=== PATIENT | female | born 1975 | race Caucasian/White ===

== ENCOUNTER 2022-01-07 08:15 | Inpatient (IN) | payer OTHER ==
[~2022-01-07] VITALS: Ht 177.8 cm; Wt 80.1 kg
[2022-01-07 09:34] LABS: Basophils # (auto) 0.1 10 ^3/uL (0-0.2); Basophils % (auto) 0.3 % (0.0-2.0)
[2022-01-07 09:35] LABS: Eosinophils # (auto) 0.1 10 ^3/uL (0-0.8); Eosinophils % (auto) 0.4 % (0.0-7.0); Hematocrit 38.9 % (36.0-46.0); Hemoglobin 12.2 g/dL (12.2-16.2); Lymphocytes # (auto) 1.6 10 ^3/uL (0.4-5.4); Lymphocytes % (auto) 7.4 % (10.0-50.0); Mean Corpuscular Hemoglobin 29.1 pg (28.0-32.0); Mean Corpuscular Hgb Conc. 31.3 g/dL (32.0-36.0); Mean Corpuscular Volume 92.9 fL (80.0-100.0); Monocytes % (auto) 4.6 % (0.0-12.0); Neutrophils # (auto) 18.7 10 ^3/uL (1.6-8.6); Neutrophils % (auto) 87.3 % (37.0-80.0); Nucleated Red Blood Cells % 0.1 %; Red Blood Cells 4.18 10^6/uL (4.0-5.20); Red Cell Distribution Width 16.9 % (11.8-14.3); White Blood Cell 21.5 10^3/uL (4.4-10.8)
[2022-01-07] MEDS ORDERED: ONDANSETRON HCL 4 MG/2 ML VIAL IV ONE (10:30)
[2022-01-07] MEDS ORDERED: SODIUM CHLORIDE 0.9% 1,000 ML IV ONE ×2 (10:30→12:00)
[2022-01-07] MEDS ORDERED: MORPHINE SULFATE 4 MG/ML SYR/VIAL IV ONE (12:00)
[2022-01-07 12:11] LABS: Albumin 1.4 g/dL (3.4-5.0); BUN/Creatinine Ratio 24.1; Calcium 6.9 mg/dL (8.5-10.1)
[2022-01-07 12:25] LABS: Magnesium 2.2 mg/dL (1.6-2.6)
[2022-01-07 12:31] LABS: Bilirubin, Total 0.6 mg/dL (0.2-1.0); Total Protein 5.1 g/dL (6.4-8.2)
[2022-01-07] MEDS: PROMETHAZINE HCL 25 MG/ML 1ML IV PRN (12:31)
[2022-01-07] MEDS ORDERED: POTASSIUM EFFERVESENT TAB 25 MEQ PO ONE (13:45)
[2022-01-07] MEDS ORDERED: ALBUMIN 25% 100 ML IV ONE (13:45)
[2022-01-07] MEDS ORDERED: IOHEXOL 300 MG/ML 100ML BOTTLE IJ ONE (13:46)
[2022-01-07] MEDS ORDERED: PROCHLORPERAZINE EDISYLATE 5 MG/ML 2ML VIAL IV ONE (14:30)
[2022-01-07] MEDS ORDERED: HYDROmorphone HCL 2 MG/ML VL/or syr IV ONE ×2 (15:15→19:45)
[2022-01-07] MEDS ORDERED: D5W/SOD CHL 0.45%/KCL 40MEQ 1,000 ML IV ONE (16:00)
[2022-01-07] MEDS ORDERED: FLEET MINERAL OIL ENEMA 133 ML PR ONE (16:15)
[2022-01-07] MEDS ORDERED: DOCUSATE SOD 100 MG CAP PO PRN (17:00)
[2022-01-07] MEDS ORDERED: MORPHINE SULFATE INJ 2 MG/ml SYRG IV PRN (17:00)
[2022-01-07] MEDS: metroNIDAZOLE 500MG/100ML 100 ML IV SCH (17:15)
[2022-01-07] MEDS ORDERED: TPN PER PHARMACY 0 ML IV SCH (17:30)
[2022-01-07] MEDS: SODIUM CHLORIDE 0.9% 1,000 ML IV SCH (17:45)
[2022-01-07] MEDS: POTASSIUM CHL 20MEQ/100ML 100 ML IV SCH ×2 (18:45→21:43)
[2022-01-07] MEDS: AMINO ACID INFUSION IN D10W 1,000 ML IV NR (20:00)
[2022-01-07 22:00] VITALS: BP 104/66
[2022-01-07] MEDS ORDERED: POTASSIUM CHL 20MEQ/100ML 100 ML IV ONE (22:00)
[2022-01-07] MEDS ORDERED: LEVO150T10 PO (22:43)
[2022-01-07] MEDS ORDERED: [UNRECOGNIZED DRUG - CODE] (22:43)
[2022-01-07] MEDS: HYDROmorphone HCL 2 MG/ML VL/or syr IV PRN (23:25)
[2022-01-08] MEDS ORDERED: DEXTROSE (50%) 50ML SYRG IV SCH
[2022-01-08] MEDS: ACCU-CHEK COMFORT CURVE STRIP VI SCH ×5 (00:58→23:30)
[2022-01-08] MEDS: InsuLIN REG 1unit/0.01ml Soln (100units/ml) SC SCH ×5 (00:58→23:30)
[2022-01-08] MEDS: metroNIDAZOLE 500MG/100ML 100 ML IV SCH ×3 (01:26→17:39)
[2022-01-08] MEDS: HYDROmorphone HCL 2 MG/ML VL/or syr IV PRN ×6 (03:05→23:30)
[2022-01-08 05:00] VITALS: BP 112/76
[2022-01-08 06:13] LABS: Urine Bacteria NONE SEEN /hpf (None Seen); Urine Blood 3+ /uL (Negative); Urine Hyaline Cast FEW /lpf (0 - 2); Urine Mucus FEW (None Seen); Urine Specific Gravity 1.043 (1.001-1.035); Urine WBC 8 /hpf (0 - 5)
[2022-01-08 06:30] LABS: Albumin 1.3 g/dL (3.4-5.0); Calcium 6.2 mg/dL (8.5-10.1); Magnesium 2.3 mg/dL (1.6-2.6)
[2022-01-08 06:32] LABS: Alcohol, Urine < 3.0 mg/dL (0-10); Amphetamine Screen, Urine NEGATIVE (NEGATIVE); Barbiturate Scree,Urine NEGATIVE (NEGATIVE); Benzodiazephine Screen, Urine NEGATIVE (NEGATIVE); Cannabinoid Screen, Urine NEGATIVE (NEGATIVE); Cocaine Screen, Urine NEGATIVE (NEGATIVE); Opiate Scree,Urine NEGATIVE (NEGATIVE); Phencyclidine Screen, Urine NEGATIVE (NEGATIVE)
[2022-01-08 06:33] LABS: BUN/Creatinine Ratio 30.2; Bilirubin, Total 0.6 mg/dL (0.2-1.0); Total Protein 4.3 g/dL (6.4-8.2)
[2022-01-08 06:36] LABS: Eosinophils # (auto) 0 10 ^3/uL (0-0.8); Eosinophils % (auto) 0.2 % (0.0-7.0); Hemoglobin 11.5 g/dL (12.2-16.2); Mean Corpuscular Volume 93.6 fL (80.0-100.0)
[2022-01-08 06:41] LABS: Basophils # (auto) 0.1 10 ^3/uL (0-0.2); Basophils % (auto) 0.3 % (0.0-2.0); Hematocrit 36.1 % (36.0-46.0); Lymphocytes # (auto) 1.6 10 ^3/uL (0.4-5.4); Lymphocytes % (auto) 8.5 % (10.0-50.0); Mean Corpuscular Hemoglobin 29.7 pg (28.0-32.0); Mean Corpuscular Hgb Conc. 31.8 g/dL (32.0-36.0); Monocytes % (auto) 5.4 % (0.0-12.0); Neutrophils % (auto) 85.6 % (37.0-80.0); Nucleated Red Blood Cells % 0.1 %; Red Blood Cells 3.86 10^6/uL (4.0-5.20); Red Cell Distribution Width 16.7 % (11.8-14.3); White Blood Cell 18.7 10^3/uL (4.4-10.8)
[2022-01-08 08:00] VITALS: BP 114/76
[2022-01-08 08:36] VITALS: BP 114/76
[2022-01-08] MEDS: SODIUM CHLORIDE 0.9% 1,000 ML IV SCH (09:40)
[2022-01-08 09:51] LABS: INR 1.25 (0.9-1.15); Partial Thromboplastin Time 29.3 sec (24.6-33.4)
[2022-01-08] MEDS: ONDANSETRON HCL 4 MG/2 ML VIAL IV PRN ×2 (10:31→16:15)
[2022-01-08] MEDS: ENOXAPARIN SOD 40 MG/0.4 ML SYRINGE SC SCH (10:31)
[2022-01-08] MEDS: AMINO ACID INFUSION IN D10W 1,000 ML IV NR (11:31)
[2022-01-08] MEDS: POTASSIUM CHL 20MEQ/100ML 100 ML IV SCH ×3 (12:11→21:47)
[2022-01-08] MEDS ORDERED: BENZOCAINE (DENTAL) 20 % SPRAY 60ML MT ONE (12:15)
[2022-01-08 13:29] VITALS: BP 114/74
[2022-01-08] MEDS ORDERED: CALCIUM GLUC 4.65meq/50ml D5AE 50 ML IV ONE (14:00)
[2022-01-08] MEDS ORDERED: CALCIUM GLUC 1,000mg/50ml-NS 50 ML IV ONE (15:00)
[2022-01-08 16:27] VITALS: BP 130/86
[2022-01-08] MEDS ORDERED: LIDOCAINE 1% (LOCAL ANESTH.) PF 5ml SDV ID ONE (16:30)
[2022-01-08] MEDS ORDERED: PPN PER PHARMACY IV NR ×8 (20:00)
[2022-01-08 20:20] LABS: Magnesium 2.2 mg/dL (1.6-2.6); Phosphorus 4.3 mg/dL (2.5-4.90)
[2022-01-08 20:29] LABS: Potassium 2.9 mmol/L (3.5-5.1)
[2022-01-08] MEDS ORDERED: POTASSIUM CHL 20MEQ/100ML 100 ML IV SCH (21:45)
[2022-01-08] MEDS: SODIUM CHLOR 0.9% PF (SALINE LOCK) 10ML VIAL/SYR IV SCH (21:47)
[2022-01-08 21:52] VITALS: BP 122/86
[2022-01-09] MEDS: metroNIDAZOLE 500MG/100ML 100 ML IV SCH ×2 (01:08→09:12)
[2022-01-09] MEDS: SODIUM CHLORIDE 0.9% 1,000 ML IV SCH ×2 (02:20→19:00)
[2022-01-09] MEDS: HYDROmorphone HCL 2 MG/ML VL/or syr IV PRN ×7 (02:30→23:57)
[2022-01-09 05:07] VITALS: BP 135/84
[2022-01-09] MEDS: ACCU-CHEK COMFORT CURVE STRIP VI SCH ×4 (05:38→23:56)
[2022-01-09] MEDS: InsuLIN REG 1unit/0.01ml Soln (100units/ml) SC SCH ×3 (06:03→18:22)
[2022-01-09 06:23] LABS: Albumin 1.1 g/dL (3.4-5.0); BUN/Creatinine Ratio 31.4; Magnesium 1.9 mg/dL (1.6-2.6)
[2022-01-09 06:25] LABS: Basophils # (auto) 0.1 10 ^3/uL (0-0.2); Basophils % (auto) 0.3 % (0.0-2.0); Bilirubin, Total 0.4 mg/dL (0.2-1.0); Eosinophils # (auto) 0 10 ^3/uL (0-0.8); Eosinophils % (auto) 0.1 % (0.0-7.0); Hematocrit 36.3 % (36.0-46.0); Hemoglobin 11.5 g/dL (12.2-16.2); Mean Corpuscular Hgb Conc. 31.6 g/dL (32.0-36.0); Mean Corpuscular Volume 94.9 fL (80.0-100.0); Monocytes # (auto) 1.4 10 ^3/uL (0-1.3); Monocytes % (auto) 5.4 % (0.0-12.0); Neutrophils % (auto) 90.2 % (37.0-80.0); Phosphorus 3.2 mg/dL (2.5-4.90); Red Blood Cells 3.82 10^6/uL (4.0-5.20); Red Cell Distribution Width 16.5 % (11.8-14.3); Total Protein 4.1 g/dL (6.4-8.2); White Blood Cell 25.5 10^3/uL (4.4-10.8)
[2022-01-09 07:42] LABS: Potassium 2.9 mmol/L (3.5-5.1)
[2022-01-09 09:00] VITALS: BP 121/86
[2022-01-09] MEDS ORDERED: cefTRIAXone 1GM/50ML D5W 50 ML IV SCH (09:00)
[2022-01-09] MEDS: ENOXAPARIN SOD 40 MG/0.4 ML SYRINGE SC SCH (09:12)
[2022-01-09] MEDS ORDERED: CALCIUM GLUC 1,000mg/50ml-NS 50 ML IV ONE (09:15)
[2022-01-09] MEDS: ONDANSETRON HCL 4 MG/2 ML VIAL IV PRN ×2 (09:16→23:57)
[2022-01-09] MEDS ORDERED: MAGNESIUM SULFATE 1GM/100ML 100 ML IV ONE (09:30)
[2022-01-09] MEDS ORDERED: ENOXAPARIN SOD 30 MG/0.3 ML SYRINGE SC SCH (10:00)
[2022-01-09] MEDS: SODIUM CHLOR 0.9% PF (SALINE LOCK) 10ML VIAL/SYR IV SCH ×2 (10:00→22:08)
[2022-01-09] MEDS: POTASSIUM CHL 20MEQ/100ML 100 ML IV SCH ×4 (11:30→23:56)
[2022-01-09 12:00] VITALS: BP 129/84
[2022-01-09] MEDS ORDERED: PIPERACILLIN-TAZOB 3.375GM 100 ML IV ONE (14:30)
[2022-01-09] MEDS ORDERED: PANTOPRAZOLE 40 MG/10 ML VIAL INJ IV ONE (14:30)
[2022-01-09 16:00] VITALS: BP 115/82
[2022-01-09 22:04] VITALS: BP 109/80
[2022-01-09] MEDS: TPN PER PHARMACY IV NR ×9 (22:07)
[2022-01-09] MEDS: PIPERACILLIN-TAZOB 3.375GM 100 ML IV SCH (22:44)
[2022-01-10] MEDS: InsuLIN REG 1unit/0.01ml Soln (100units/ml) SC SCH ×4 (00:10→18:05)
[2022-01-10] MEDS: POTASSIUM CHL 20MEQ/100ML 100 ML IV SCH ×2 (02:22→02:24)
[2022-01-10] MEDS: HYDROmorphone HCL 2 MG/ML VL/or syr IV PRN ×7 (03:00→23:16)
[2022-01-10 05:17] VITALS: BP 115/87
[2022-01-10] MEDS: LEVOTHYROXINE SODIUM 100 MCG/5 ML INJ IV SCH (06:09)
[2022-01-10] MEDS: PIPERACILLIN-TAZOB 3.375GM 100 ML IV SCH ×2 (06:09→13:46)
[2022-01-10] MEDS: ONDANSETRON HCL 4 MG/2 ML VIAL IV PRN ×2 (06:09→20:46)
[2022-01-10 06:17] LABS: Basophils # (auto) 0.1 10 ^3/uL (0-0.2); Mean Corpuscular Hgb Conc. 29.6 g/dL (32.0-36.0)
[2022-01-10 06:18] LABS: Basophils % (auto) 0.3 % (0.0-2.0); Eosinophils # (auto) 0.2 10 ^3/uL (0-0.8); Eosinophils % (auto) 1.1 % (0.0-7.0); Hematocrit 40.1 % (36.0-46.0); Hemoglobin 11.9 g/dL (12.2-16.2); Lymphocytes # (auto) 1.8 10 ^3/uL (0.4-5.4); Lymphocytes % (auto) 7.7 % (10.0-50.0); Mean Corpuscular Volume 104.5 fL (80.0-100.0); Monocytes # (auto) 1.4 10 ^3/uL (0-1.3); Monocytes % (auto) 6.2 % (0.0-12.0); Neutrophils # (auto) 19.6 10 ^3/uL (1.6-8.6); Neutrophils % (auto) 84.7 % (37.0-80.0); Nucleated Red Blood Cells % 0.1 %; Red Blood Cells 3.83 10^6/uL (4.0-5.20); Red Cell Distribution Width 18.7 % (11.8-14.3); White Blood Cell 23.1 10^3/uL (4.4-10.8)
[2022-01-10] MEDS: ACCU-CHEK COMFORT CURVE STRIP VI SCH ×3 (06:37→18:05)
[2022-01-10 09:00] VITALS: BP 111/78
[2022-01-10] MEDS: PANTOPRAZOLE 40 MG/10 ML VIAL INJ IV SCH (09:19)
[2022-01-10 10:36] LABS: Carbon Dioxide 23 mmol/L (21-32); Chloride 112 mmol/L (98-107); Potassium 3.6 mmol/L (3.5-5.1); Sodium 141 mmol/L (136-145)
[2022-01-10 10:37] LABS: Alanine Aminotransferase 11 U/L (13-56); Albumin 1.2 g/dL (3.4-5.0); Alkaline Phosphatase 71 U/L (45-117); Aspartate Aminotransferase 13 U/L (15-37); BUN/Creatinine Ratio 27.9; Bilirubin, Total 0.3 mg/dL (0.2-1.0); Blood Urea Nitrogen 17 mg/dL (7-18); Calcium 6.7 mg/dL (8.5-10.1); GFR African American 136 mL/min; GFR Non-African American 112 mL/min; Glucose 136 mg/dL (74-106); Magnesium 2.3 mg/dL (1.6-2.6); Phosphorus 2.6 mg/dL (2.5-4.90); Total Protein 4.5 g/dL (6.4-8.2)
[2022-01-10 10:38] LABS: Anion Gap 6 (5-15)
[2022-01-10] MEDS: SODIUM CHLOR 0.9% PF (SALINE LOCK) 10ML VIAL/SYR IV SCH ×2 (12:50→22:25)
[2022-01-10 13:00] VITALS: BP 122/76
[2022-01-10] MEDS ORDERED: VANCOMYCIN PER PHARMACY 0 MG IV SCH (14:45)
[2022-01-10 17:00] VITALS: BP 114/76
[2022-01-10] MEDS: VANCOMYCIN 1GM/250ML 250 ML IV SCH ×2 (17:29→23:16)
[2022-01-10] MEDS ORDERED: TPN PER PHARMACY IV NR ×9 (20:00)
[2022-01-10 21:42] VITALS: BP 131/86
[2022-01-10] MEDS: TPN PER PHARMACY IV NR ×9 (22:03)
[2022-01-11] VITALS (7 sets, daily range): BP systolic 101–127; BP diastolic 59–75
[2022-01-11] MEDS: PIPERACILLIN-TAZOB 3.375GM 100 ML IV SCH ×3 (00:13→13:24)
[2022-01-11] MEDS: ACCU-CHEK COMFORT CURVE STRIP VI SCH ×4 (00:41→17:54)
[2022-01-11] MEDS: InsuLIN REG 1unit/0.01ml Soln (100units/ml) SC SCH ×4 (00:41→17:54)
[2022-01-11] MEDS: HYDROmorphone HCL 2 MG/ML VL/or syr IV PRN ×6 (03:37→21:12)
[2022-01-11] MEDS: ONDANSETRON HCL 4 MG/2 ML VIAL IV PRN (03:37)
[2022-01-11] MEDS: SODIUM CHLORIDE 0.9% 1,000 ML IV SCH ×3 (04:20→21:00)
[2022-01-11 05:29] LABS: Basophils # (auto) 0.1 10 ^3/uL (0-0.2); Basophils % (auto) 0.5 % (0.0-2.0); Eosinophils # (auto) 0.4 10 ^3/uL (0-0.8); Eosinophils % (auto) 2.2 % (0.0-7.0); Hematocrit 34.8 % (36.0-46.0); Lymphocytes # (auto) 1.6 10 ^3/uL (0.4-5.4); Lymphocytes % (auto) 9.8 % (10.0-50.0); Mean Corpuscular Hemoglobin 30.7 pg (28.0-32.0); Mean Corpuscular Hgb Conc. 31.6 g/dL (32.0-36.0); Monocytes # (auto) 1.1 10 ^3/uL (0-1.3); Monocytes % (auto) 6.4 % (0.0-12.0); Neutrophils # (auto) 13.4 10 ^3/uL (1.6-8.6); Neutrophils % (auto) 81.1 % (37.0-80.0); Nucleated Red Blood Cells % 0.1 %; Red Blood Cells 3.59 10^6/uL (4.0-5.20); Red Cell Distribution Width 17.2 % (11.8-14.3); White Blood Cell 16.6 10^3/uL (4.4-10.8)
[2022-01-11] MEDS: LEVOTHYROXINE SODIUM 100 MCG/5 ML INJ IV SCH (06:00)
[2022-01-11] MEDS: VANCOMYCIN 1GM/250ML 250 ML IV SCH ×3 (06:00→22:15)
[2022-01-11] MEDS: PANTOPRAZOLE 40 MG/10 ML VIAL INJ IV SCH (10:08)
[2022-01-11] MEDS: SODIUM CHLOR 0.9% PF (SALINE LOCK) 10ML VIAL/SYR IV SCH ×2 (10:10→22:00)
[2022-01-11 13:47] LABS: Alkaline Phosphatase 56 U/L (45-117); Anion Gap 1 (5-15); Aspartate Aminotransferase 6 U/L (15-37); BUN/Creatinine Ratio 26.1; Blood Urea Nitrogen 12 mg/dL (7-18); Carbon Dioxide 30 mmol/L (21-32); Chloride 109 mmol/L (98-107); GFR African American 188 mL/min; GFR Non-African American 155 mL/min; Glucose 115 mg/dL (74-106); Potassium 3.5 mmol/L (3.5-5.1); Sodium 140 mmol/L (136-145)
[2022-01-11 13:48] LABS: Alanine Aminotransferase 7 U/L (13-56); Albumin 1.1 g/dL (3.4-5.0); Bilirubin, Total 0.3 mg/dL (0.2-1.0); Calcium 6.7 mg/dL (8.5-10.1); Magnesium 2.1 mg/dL (1.6-2.6); Phosphorus 2.6 mg/dL (2.5-4.90); Total Protein 4.3 g/dL (6.4-8.2)
[2022-01-11] MEDS ORDERED: POTASSIUM PHOSPHATE 44 MEQ in D5W 5% 250 ML IV ONE (16:00)
[2022-01-11] MEDS ORDERED: CLINIMIX PER PHARMACY IV NR (20:00)
[2022-01-12] VITALS (7 sets, daily range): BP systolic 100–121; BP diastolic 67–81
[2022-01-12] MEDS: HYDROmorphone HCL 2 MG/ML VL/or syr IV PRN ×7 (00:25→21:25)
[2022-01-12] MEDS: ACCU-CHEK COMFORT CURVE STRIP VI SCH ×4 (00:26→18:00)
[2022-01-12] MEDS: PIPERACILLIN-TAZOB 3.375GM 100 ML IV SCH ×3 (01:14→17:40)
[2022-01-12 05:26] LABS: Basophils # (auto) 0 10 ^3/uL (0-0.2); Basophils % (auto) 0.2 % (0.0-2.0); Eosinophils # (auto) 0.4 10 ^3/uL (0-0.8); Eosinophils % (auto) 2.4 % (0.0-7.0); Hematocrit 32.8 % (36.0-46.0); Hemoglobin 10.7 g/dL (12.2-16.2); Lymphocytes # (auto) 1.6 10 ^3/uL (0.4-5.4); Lymphocytes % (auto) 10.8 % (10.0-50.0); Mean Corpuscular Hemoglobin 31.1 pg (28.0-32.0); Mean Corpuscular Hgb Conc. 32.6 g/dL (32.0-36.0); Mean Corpuscular Volume 95.2 fL (80.0-100.0); Monocytes # (auto) 1.2 10 ^3/uL (0-1.3); Monocytes % (auto) 7.6 % (0.0-12.0); Red Blood Cells 3.44 10^6/uL (4.0-5.20); Red Cell Distribution Width 16.8 % (11.8-14.3); White Blood Cell 15.2 10^3/uL (4.4-10.8)
[2022-01-12 05:51] LABS: Potassium 3.8 mmol/L (3.5-5.1)
[2022-01-12 05:58] LABS: BUN/Creatinine Ratio 36.7; Bilirubin, Total 0.5 mg/dL (0.2-1.0); Calcium 6.9 mg/dL (8.5-10.1); Magnesium 1.9 mg/dL (1.6-2.6); Phosphorus 2.9 mg/dL (2.5-4.90); Total Protein 4.2 g/dL (6.4-8.2)
[2022-01-12] MEDS: InsuLIN REG 1unit/0.01ml Soln (100units/ml) SC SCH ×4 (06:00→18:00)
[2022-01-12] MEDS: LEVOTHYROXINE SODIUM 100 MCG/5 ML INJ IV SCH (06:35)
[2022-01-12] MEDS: VANCOMYCIN 1GM/250ML 250 ML IV SCH ×2 (06:35→15:00)
[2022-01-12] MEDS: PANTOPRAZOLE 40 MG/10 ML VIAL INJ IV SCH (09:16)
[2022-01-12] MEDS: SODIUM CHLOR 0.9% PF (SALINE LOCK) 10ML VIAL/SYR IV SCH ×2 (09:16→22:00)
[2022-01-12] MEDS: SODIUM CHLORIDE 0.9% 1,000 ML IV SCH (13:40)
[2022-01-12] MEDS ORDERED: PROPOFOL 10 MG/ML 20 ML IV ONE (13:50)
[2022-01-12] MEDS ORDERED: fentaNYL CITRATE 100 MCG/2 ML VL ONE (16:14)
[2022-01-12] MEDS ORDERED: MIDAZOLAM HCL 2MG/2ML 2ml VIAL (1mg/ml) ONE (16:14)
[2022-01-12] MEDS ORDERED: MIDAZOLAM HCL 2MG/2ML 2ml VIAL (1mg/ml) IV PRN (16:30)
[2022-01-12] MEDS ORDERED: fentaNYL CITRATE 100 MCG/2 ML VL IV PRN (16:30)
[2022-01-12] MEDS ORDERED: LABETALOL HCL 5 MG/ML 4ML SYRINGE IV PRN (16:30)
[2022-01-12] MEDS ORDERED: HYDROmorphone HCL 2 MG/ML VL/or syr IV PRN (16:30)
[2022-01-12] MEDS ORDERED: ONDANSETRON HCL 4 MG/2 ML VIAL IV PRN (16:30)
[2022-01-12] MEDS ORDERED: ePHEDrine SULFATE 50 MG/ML AMP IV PRN (16:30)
[2022-01-12] MEDS ORDERED: HYDROmorphone HCL 2 MG/ML VL/or syr IV ONE (18:30)
[2022-01-12] MEDS ORDERED: SODIUM CHLORIDE 0.9% 1,000 ML IV SCH (19:00)
[2022-01-12] MEDS ORDERED: TPN PER PHARMACY IV NR ×10 (20:00)
[2022-01-13] VITALS (7 sets, daily range): BP systolic 101–129; BP diastolic 69–79
[2022-01-13] MEDS: HYDROmorphone HCL 2 MG/ML VL/or syr IV PRN ×8 (00:31→23:11)
[2022-01-13] MEDS: VANCOMYCIN 1GM/250ML 250 ML IV SCH ×4 (00:56→23:10)
[2022-01-13] MEDS: PIPERACILLIN-TAZOB 3.375GM 100 ML IV SCH ×3 (02:20→16:58)
[2022-01-13 05:19] LABS: Basophils # (auto) 0.2 10 ^3/uL (0-0.2); Basophils % (auto) 1.3 % (0.0-2.0); Eosinophils # (auto) 0.3 10 ^3/uL (0-0.8); Eosinophils % (auto) 2.2 % (0.0-7.0); Hematocrit 32.5 % (36.0-46.0); Hemoglobin 10.5 g/dL (12.2-16.2); Lymphocytes # (auto) 1.2 10 ^3/uL (0.4-5.4); Lymphocytes % (auto) 8.4 % (10.0-50.0); Mean Corpuscular Hemoglobin 30.5 pg (28.0-32.0); Mean Corpuscular Hgb Conc. 32.2 g/dL (32.0-36.0); Mean Corpuscular Volume 94.7 fL (80.0-100.0); Monocytes % (auto) 6.8 % (0.0-12.0); Neutrophils # (auto) 11.6 10 ^3/uL (1.6-8.6); Neutrophils % (auto) 81.3 % (37.0-80.0); Nucleated Red Blood Cells % 0.1 %; Red Blood Cells 3.43 10^6/uL (4.0-5.20); Red Cell Distribution Width 16.4 % (11.8-14.3); White Blood Cell 14.2 10^3/uL (4.4-10.8)
[2022-01-13 05:34] LABS: Albumin 1.1 g/dL (3.4-5.0); Calcium 6.9 mg/dL (8.5-10.1); Magnesium 1.8 mg/dL (1.6-2.6); Potassium 3.9 mmol/L (3.5-5.1)
[2022-01-13 05:39] LABS: BUN/Creatinine Ratio 28.6; Bilirubin, Total 0.4 mg/dL (0.2-1.0); Phosphorus 3.4 mg/dL (2.5-4.90); Total Protein 4.2 g/dL (6.4-8.2)
[2022-01-13] MEDS: InsuLIN REG 1unit/0.01ml Soln (100units/ml) SC SCH ×4 (06:00→17:30)
[2022-01-13] MEDS: ACCU-CHEK COMFORT CURVE STRIP VI SCH ×4 (06:03→17:31)
[2022-01-13] MEDS: LEVOTHYROXINE SODIUM 100 MCG/5 ML INJ IV SCH (06:35)
[2022-01-13] MEDS: PANTOPRAZOLE 40 MG/10 ML VIAL INJ IV SCH (09:39)
[2022-01-13] MEDS: SODIUM CHLOR 0.9% PF (SALINE LOCK) 10ML VIAL/SYR IV SCH ×2 (09:40→22:00)
[2022-01-13] MEDS ORDERED: TPN PER PHARMACY IV NR ×11 (20:00)
[2022-01-13] MEDS: SODIUM CHLORIDE 0.9% 1,000 ML IV SCH (23:21)
[2022-01-14] MEDS: InsuLIN REG 1unit/0.01ml Soln (100units/ml) SC SCH ×4 (00:29→18:00)
[2022-01-14] MEDS: PIPERACILLIN-TAZOB 3.375GM 100 ML IV SCH ×3 (00:34→17:07)
[2022-01-14] MEDS: HYDROmorphone HCL 2 MG/ML VL/or syr IV PRN ×7 (02:15→23:19)
[2022-01-14 05:00] VITALS: BP 114/66
[2022-01-14 05:44] LABS: Calcium 6.8 mg/dL (8.5-10.1); Magnesium 1.8 mg/dL (1.6-2.6); Potassium 3.8 mmol/L (3.5-5.1)
[2022-01-14 05:48] LABS: BUN/Creatinine Ratio 21.4; Bilirubin, Total 0.3 mg/dL (0.2-1.0); Phosphorus 3.3 mg/dL (2.5-4.90); Total Protein 4.1 g/dL (6.4-8.2)
[2022-01-14] MEDS: ACCU-CHEK COMFORT CURVE STRIP VI SCH ×4 (06:00→18:23)
[2022-01-14] MEDS: LEVOTHYROXINE SODIUM 100 MCG/5 ML INJ IV SCH (06:37)
[2022-01-14] MEDS: VANCOMYCIN 1GM/250ML 250 ML IV SCH ×2 (06:53→14:02)
[2022-01-14 09:00] VITALS: BP 110/74
[2022-01-14] MEDS: PANTOPRAZOLE 40 MG/10 ML VIAL INJ IV SCH (09:38)
[2022-01-14] MEDS: SODIUM CHLOR 0.9% PF (SALINE LOCK) 10ML VIAL/SYR IV SCH ×2 (09:38→22:00)
[2022-01-14 13:00] VITALS: BP 113/72
[2022-01-14 17:00] VITALS: BP 100/65
[2022-01-14 20:00] VITALS: BP 101/69
[2022-01-14] MEDS ORDERED: TPN PER PHARMACY IV NR ×9 (20:00)
[2022-01-14] MEDS: SODIUM CHLORIDE 0.9% 1,000 ML IV SCH (20:18)
[2022-01-14 22:00] VITALS: BP 112/69
[2022-01-15] MEDS: ACCU-CHEK COMFORT CURVE STRIP VI SCH ×5 (00:20→23:48)
[2022-01-15] MEDS: VANCOMYCIN 1GM/250ML 250 ML IV SCH ×2 (01:48→14:20)
[2022-01-15] MEDS: HYDROmorphone HCL 2 MG/ML VL/or syr IV PRN ×6 (02:07→23:49)
[2022-01-15] MEDS: PIPERACILLIN-TAZOB 3.375GM 100 ML IV SCH ×3 (02:07→17:30)
[2022-01-15] MEDS: SODIUM CHLORIDE 0.9% 1,000 ML IV SCH (02:08)
[2022-01-15 05:00] VITALS: BP 118/77
[2022-01-15] MEDS: InsuLIN REG 1unit/0.01ml Soln (100units/ml) SC SCH ×4 (06:00→18:00)
[2022-01-15 06:31] LABS: Magnesium 1.8 mg/dL (1.6-2.6)
[2022-01-15 06:36] LABS: BUN/Creatinine Ratio 20.4; Bilirubin, Total 0.3 mg/dL (0.2-1.0); Phosphorus 3.5 mg/dL (2.5-4.90); Total Protein 4.3 g/dL (6.4-8.2)
[2022-01-15] MEDS: LEVOTHYROXINE SODIUM 100 MCG/5 ML INJ IV SCH (06:58)
[2022-01-15] MEDS ORDERED: MAGNESIUM SULFATE 1GM/100ML 100 ML IV ONE (08:00)
[2022-01-15 09:00] VITALS: BP 120/74
[2022-01-15] MEDS ORDERED: MIDAZOLAM HCL 2MG/2ML 2ml VIAL (1mg/ml) IV ONE (09:30)
[2022-01-15] MEDS ORDERED: diphenhdrAMINE HCL 50 MG/1 ML VL IV ONE (09:30)
[2022-01-15] MEDS ORDERED: LIDOCAINE VISCOUS 2% 15ML UD MT ONE (09:30)
[2022-01-15] MEDS ORDERED: fentaNYL CITRATE 100 MCG/2 ML VL IV ONE (09:30)
[2022-01-15] MEDS ORDERED: fentaNYL CITRATE 100 MCG/2 ML VL ONE (09:40)
[2022-01-15] MEDS ORDERED: MIDAZOLAM HCL 2MG/2ML 2ml VIAL (1mg/ml) ONE (09:40)
[2022-01-15] MEDS ORDERED: diphenhdrAMINE HCL 50 MG/1 ML VL ONE (09:40)
[2022-01-15] MEDS ORDERED: [UNRECOGNIZED DRUG - OTHER] PR ONE (09:50)
[2022-01-15] MEDS: SODIUM CHLOR 0.9% PF (SALINE LOCK) 10ML VIAL/SYR IV SCH ×2 (10:00→22:32)
[2022-01-15] MEDS: PANTOPRAZOLE 40 MG/10 ML VIAL INJ IV SCH (10:00)
[2022-01-15 13:00] VITALS: BP 112/79
[2022-01-15] MEDS ORDERED: HYDROmorphone HCL 2 MG/ML VL/or syr IV ONE (14:30)
[2022-01-15 17:00] VITALS: BP 105/81
[2022-01-15] MEDS ORDERED: TPN PER PHARMACY IV NR ×9 (20:00)
[2022-01-15 22:00] VITALS: BP 123/75
[2022-01-16] MEDS: PIPERACILLIN-TAZOB 3.375GM 100 ML IV SCH ×3 (00:38→17:36)
[2022-01-16] MEDS: VANCOMYCIN 1GM/250ML 250 ML IV SCH ×2 (02:26→14:28)
[2022-01-16] MEDS: HYDROmorphone HCL 2 MG/ML VL/or syr IV PRN ×9 (02:51→23:51)
[2022-01-16 05:00] VITALS: BP 107/66
[2022-01-16 05:57] LABS: Potassium 4.2 mmol/L (3.5-5.1)
[2022-01-16 05:59] LABS: Basophils # (auto) 0 10 ^3/uL (0-0.2); Basophils % (auto) 0.3 % (0.0-2.0); Eosinophils # (auto) 0.2 10 ^3/uL (0-0.8); Eosinophils % (auto) 1.2 % (0.0-7.0); Hematocrit 34.5 % (36.0-46.0); Lymphocytes % (auto) 7.1 % (10.0-50.0); Mean Corpuscular Hemoglobin 30.2 pg (28.0-32.0); Mean Corpuscular Hgb Conc. 31.9 g/dL (32.0-36.0); Mean Corpuscular Volume 94.6 fL (80.0-100.0); Monocytes # (auto) 1.2 10 ^3/uL (0-1.3); Monocytes % (auto) 8.1 % (0.0-12.0); Neutrophils # (auto) 12.1 10 ^3/uL (1.6-8.6); Neutrophils % (auto) 83.3 % (37.0-80.0); Red Blood Cells 3.64 10^6/uL (4.0-5.20); Red Cell Distribution Width 15.6 % (11.8-14.3)
[2022-01-16] MEDS: InsuLIN REG 1unit/0.01ml Soln (100units/ml) SC SCH ×4 (06:00→17:37)
[2022-01-16 06:07] LABS: BUN/Creatinine Ratio 23.5; Bilirubin, Total 0.4 mg/dL (0.2-1.0); Calcium 7.2 mg/dL (8.5-10.1); Magnesium 1.9 mg/dL (1.6-2.6); Phosphorus 3.9 mg/dL (2.5-4.90); Total Protein 3.9 g/dL (6.4-8.2)
[2022-01-16] MEDS: ACCU-CHEK COMFORT CURVE STRIP VI SCH ×4 (06:07→23:50)
[2022-01-16] MEDS: LEVOTHYROXINE SODIUM 100 MCG/5 ML INJ IV SCH (06:11)
[2022-01-16 06:51] LABS: White Blood Cell 14.6 10^3/uL (4.4-10.8)
[2022-01-16 09:00] VITALS: BP_SYST 115; BP_SYST 127; BP_DIAS 64; BP_DIAS 72
[2022-01-16] MEDS: PANTOPRAZOLE 40 MG/10 ML VIAL INJ IV SCH (09:26)
[2022-01-16] MEDS: SODIUM CHLOR 0.9% PF (SALINE LOCK) 10ML VIAL/SYR IV SCH ×2 (09:32→22:24)
[2022-01-16 13:00] VITALS: BP 102/70
[2022-01-16 17:00] VITALS: BP 106/76
[2022-01-16 18:53] LABS: INR 1.09 (0.9-1.15); Partial Thromboplastin Time 30.5 sec (24.6-33.4)
[2022-01-16] MEDS ORDERED: TPN PER PHARMACY IV NR ×9 (20:00)
[2022-01-16] MEDS: SODIUM CHLORIDE 0.9% 1,000 ML IV SCH (20:00)
[2022-01-16 22:00] VITALS: BP 117/74
[2022-01-17] VITALS (46 sets, daily range): BP systolic 84–167; BP diastolic 46–114
[2022-01-17] MEDS: PIPERACILLIN-TAZOB 3.375GM 100 ML IV SCH ×3 (00:50→17:00)
[2022-01-17] MEDS: HYDROmorphone HCL 2 MG/ML VL/or syr IV PRN ×2 (01:11→04:52)
[2022-01-17] MEDS: VANCOMYCIN 1GM/250ML 250 ML IV SCH ×2 (02:00→14:22)
[2022-01-17] MEDS: InsuLIN REG 1unit/0.01ml Soln (100units/ml) SC SCH ×4 (06:00→18:00)
[2022-01-17] MEDS: ACCU-CHEK COMFORT CURVE STRIP VI SCH ×3 (06:24→18:00)
[2022-01-17] MEDS: LEVOTHYROXINE SODIUM 100 MCG/5 ML INJ IV SCH (06:24)
[2022-01-17 07:11] LABS: Basophils # (auto) 0.1 10 ^3/uL (0-0.2); Basophils % (auto) 0.6 % (0.0-2.0); Eosinophils # (auto) 0.2 10 ^3/uL (0-0.8); Eosinophils % (auto) 1.1 % (0.0-7.0); Hematocrit 33.1 % (36.0-46.0); Hemoglobin 10.4 g/dL (12.2-16.2); Lymphocytes # (auto) 1.6 10 ^3/uL (0.4-5.4); Lymphocytes % (auto) 10.1 % (10.0-50.0); Mean Corpuscular Hemoglobin 29.8 pg (28.0-32.0); Mean Corpuscular Hgb Conc. 31.3 g/dL (32.0-36.0); Monocytes # (auto) 1.1 10 ^3/uL (0-1.3); Monocytes % (auto) 7.4 % (0.0-12.0); Neutrophils # (auto) 12.5 10 ^3/uL (1.6-8.6); Neutrophils % (auto) 80.8 % (37.0-80.0); Red Blood Cells 3.49 10^6/uL (4.0-5.20); Red Cell Distribution Width 15.4 % (11.8-14.3); White Blood Cell 15.4 10^3/uL (4.4-10.8)
[2022-01-17 07:13] LABS: Potassium 3.8 mmol/L (3.5-5.1)
[2022-01-17 07:22] LABS: BUN/Creatinine Ratio 25.5; Bilirubin, Total 0.4 mg/dL (0.2-1.0); Calcium 7.4 mg/dL (8.5-10.1); Magnesium 2.2 mg/dL (1.6-2.6); Phosphorus 3.5 mg/dL (2.5-4.90); Total Protein 4.6 g/dL (6.4-8.2)
[2022-01-17] MEDS ORDERED: metroNIDAZOLE 500MG/100ML 100 ML IV ONE (08:06)
[2022-01-17] MEDS ORDERED: HYDROmorphone HCL 2 MG/ML VL/or syr ONE ×2 (08:37→09:23)
[2022-01-17] MEDS ORDERED: MIDAZOLAM HCL 2MG/2ML 2ml VIAL (1mg/ml) ONE ×2 (08:37)
[2022-01-17] MEDS ORDERED: fentaNYL CITRATE 100 MCG/2 ML VL ONE (08:37)
[2022-01-17] MEDS ORDERED: CALCIUM CHLOR(10%) 100MG/ML 10ML SYRINGE IV ONE (08:44)
[2022-01-17] MEDS ORDERED: ALBUMIN 5% 500 ML IV ONE (08:53)
[2022-01-17] MEDS ORDERED: ROCURONIUM 10MG/ML 10ML VIAL IV ONE (09:04)
[2022-01-17] MEDS ORDERED: POVIDONE IODINE 10 % TOPICAL OINT 30GM TOP ONE (10:55)
[2022-01-17] MEDS: MIDAZOLAM DRIP 50 mg/50mL 50 ML IV SCH ×2 (11:15→21:10)
[2022-01-17] MEDS: fentaNYL Drip 2500mCg/250mlNS 250 ML IV SCH (11:15)
[2022-01-17] MEDS ORDERED: HYDROmorphone HCL 2 MG/ML VL/or syr IV PRN (11:30)
[2022-01-17] MEDS ORDERED: ONDANSETRON HCL 4 MG/2 ML VIAL IV PRN (11:30)
[2022-01-17] MEDS ORDERED: MIDAZOLAM HCL 2MG/2ML 2ml VIAL (1mg/ml) IV PRN (11:30)
[2022-01-17] MEDS ORDERED: ADENOSINE 6 MG/2 ML INJ IV ONE (11:30)
[2022-01-17] MEDS ORDERED: LABETALOL HCL 5 MG/ML 4ML SYRINGE IV PRN ×2 (11:30)
[2022-01-17] MEDS ORDERED: LABETALOL HCL 5 MG/ML 4ML SYRINGE IV ONE ×2 (11:30→11:32)
[2022-01-17] MEDS ORDERED: ePHEDrine SULFATE 50 MG/ML AMP IV PRN (11:30)
[2022-01-17] MEDS ORDERED: fentaNYL CITRATE 100 MCG/2 ML VL IV PRN (11:30)
[2022-01-17] MEDS ORDERED: hydrALAZINE HCL 20 MG/ML VL IV PRN (11:30)
[2022-01-17] MEDS ORDERED: SODIUM CHLORIDE 0.9% 250 ML IV ONE (11:30)
[2022-01-17] MEDS ORDERED: AMIODARONE 450mg/250ml AE 250 ML IV SCH ×2 (11:45→17:45)
[2022-01-17] MEDS ORDERED: AMIODARONE HCL 150 MG in D5W 5% 100 ML IV ONE (11:45)
[2022-01-17] MEDS ORDERED: NOREPINEPHRINE 8 MG/250ML KIT 250 ML IV SCH (11:45)
[2022-01-17] MEDS ORDERED: PHENYLEPHRINE HCL 10 MG/ML VL IV ONE (11:50)
[2022-01-17] MEDS: SODIUM CHLOR 0.9% PF (SALINE LOCK) 10ML VIAL/SYR IV SCH ×2 (13:13→22:29)
[2022-01-17] MEDS: PANTOPRAZOLE 40 MG/10 ML VIAL INJ IV SCH (13:13)
[2022-01-17] MEDS ORDERED: LACTATED RINGER'S 1,000 ML IV SCH (13:30)
[2022-01-17] MEDS: PHENYLEPHRINE IV 250 ML IV SCH ×2 (16:00→20:35)
[2022-01-17] MEDS ORDERED: TPN PER PHARMACY IV NR ×9 (20:00)
[2022-01-17] MEDS: SODIUM CHLORIDE 0.9% 1,000 ML IV SCH (20:36)
[2022-01-18] VITALS (104 sets, daily range): BP systolic 5–160; BP diastolic -12–103
[2022-01-18] MEDS: InsuLIN REG 1unit/0.01ml Soln (100units/ml) SC SCH ×4 (01:44→17:55)
[2022-01-18] MEDS: PIPERACILLIN-TAZOB 3.375GM 100 ML IV SCH ×3 (01:45→17:43)
[2022-01-18] MEDS: VANCOMYCIN 1GM/250ML 250 ML IV SCH ×2 (02:00→14:07)
[2022-01-18] MEDS: MIDAZOLAM DRIP 50 mg/50mL 50 ML IV SCH ×3 (02:09→23:13)
[2022-01-18] MEDS: PHENYLEPHRINE IV 250 ML IV SCH ×2 (03:14→12:45)
[2022-01-18] MEDS: ACCU-CHEK COMFORT CURVE STRIP VI SCH ×4 (05:53→17:43)
[2022-01-18 06:34] LABS: INR 1.18 (0.9-1.15); Partial Thromboplastin Time 36.2 sec (24.6-33.4)
[2022-01-18] MEDS: LEVOTHYROXINE SODIUM 100 MCG/5 ML INJ IV SCH (06:47)
[2022-01-18 07:04] LABS: Basophils # (auto) 0.1 10 ^3/uL (0-0.2); Basophils % (auto) 0.3 % (0.0-2.0); Eosinophils # (auto) 0.1 10 ^3/uL (0-0.8); Eosinophils % (auto) 0.4 % (0.0-7.0); Hematocrit 28.1 % (36.0-46.0); Hemoglobin 9.1 g/dL (12.2-16.2); Lymphocytes # (auto) 0.9 10 ^3/uL (0.4-5.4); Lymphocytes % (auto) 5.3 % (10.0-50.0); Mean Corpuscular Hemoglobin 30.8 pg (28.0-32.0); Mean Corpuscular Hgb Conc. 32.2 g/dL (32.0-36.0); Mean Corpuscular Volume 95.5 fL (80.0-100.0); Monocytes # (auto) 0.8 10 ^3/uL (0-1.3); Monocytes % (auto) 4.5 % (0.0-12.0); Neutrophils # (auto) 15.7 10 ^3/uL (1.6-8.6); Neutrophils % (auto) 89.5 % (37.0-80.0); Red Blood Cells 2.94 10^6/uL (4.0-5.20); White Blood Cell 17.6 10^3/uL (4.4-10.8)
[2022-01-18 08:25] LABS: Calcium 7.3 mg/dL (8.5-10.1); Magnesium 2.3 mg/dL (1.6-2.6); Potassium 4.2 mmol/L (3.5-5.1)
[2022-01-18 08:31] LABS: BUN/Creatinine Ratio 22.3; Bilirubin, Total 0.2 mg/dL (0.2-1.0); Total Protein 3.6 g/dL (6.4-8.2)
[2022-01-18 08:46] LABS: Albumin 0.9 g/dL (3.4-5.0)
[2022-01-18] MEDS: PANTOPRAZOLE 40 MG/10 ML VIAL INJ IV SCH (09:52)
[2022-01-18] MEDS: SODIUM CHLOR 0.9% PF (SALINE LOCK) 10ML VIAL/SYR IV SCH ×2 (09:52→21:29)
[2022-01-18] MEDS ORDERED: ALBUMIN 25% 100 ML IV ONE (10:00)
[2022-01-18] MEDS: fentaNYL Drip 2500mCg/250mlNS 250 ML IV SCH ×2 (10:15→17:45)
[2022-01-18] MEDS ORDERED: FUROSEMIDE 40 MG/4 ML VIAL IV ONE (15:15)
[2022-01-18] MEDS ORDERED: POTASSIUM EFFERVESENT TAB 25 MEQ GT ONE (15:15)
[2022-01-18] MEDS ORDERED: TPN PER PHARMACY IV NR ×9 (20:00)
[2022-01-19] VITALS (101 sets, daily range): BP systolic 91–144; BP diastolic 45–78
[2022-01-19] MEDS: PIPERACILLIN-TAZOB 3.375GM 100 ML IV SCH ×3 (01:00→17:15)
[2022-01-19] MEDS: VANCOMYCIN 1GM/250ML 250 ML IV SCH (01:46)
[2022-01-19] MEDS: ACCU-CHEK COMFORT CURVE STRIP VI SCH ×5 (05:14→23:50)
[2022-01-19] MEDS: InsuLIN REG 1unit/0.01ml Soln (100units/ml) SC SCH ×5 (05:15→23:50)
[2022-01-19] MEDS: LEVOTHYROXINE SODIUM 100 MCG/5 ML INJ IV SCH (06:03)
[2022-01-19 06:06] LABS: Albumin 1.1 g/dL (3.4-5.0); Calcium 6.9 mg/dL (8.5-10.1); Magnesium 2.3 mg/dL (1.6-2.6); Potassium 4.2 mmol/L (3.5-5.1)
[2022-01-19 06:07] LABS: BUN/Creatinine Ratio 20.1
[2022-01-19 06:09] LABS: Bilirubin, Total 0.2 mg/dL (0.2-1.0); Phosphorus 3.6 mg/dL (2.5-4.90); Total Protein 3.2 g/dL (6.4-8.2)
[2022-01-19 07:18] LABS: Hemoglobin 7.4 g/dL (12.2-16.2)
[2022-01-19 07:22] LABS: Basophils # (auto) 0 10 ^3/uL (0-0.2); Eosinophils # (auto) 0 10 ^3/uL (0-0.8); Hematocrit 23.3 % (36.0-46.0); Lymphocytes # (auto) 1.3 10 ^3/uL (0.4-5.4); Mean Corpuscular Hemoglobin 30.3 pg (28.0-32.0); Mean Corpuscular Hgb Conc. 31.7 g/dL (32.0-36.0); Mean Corpuscular Volume 95.5 fL (80.0-100.0); Monocytes # (auto) 2.9 10 ^3/uL (0-1.3); Red Blood Cells 2.44 10^6/uL (4.0-5.20); Red Cell Distribution Width 14.6 % (11.8-14.3); White Blood Cell 12.2 10^3/uL (4.4-10.8)
[2022-01-19 07:27] LABS: Basophils % (auto) 0.4 % (0.0-2.0); Eosinophils % (auto) 2.2 % (0.0-7.0); Neutrophils % (auto) 86.4 % (37.0-80.0)
[2022-01-19] MEDS: PHENYLEPHRINE IV 250 ML IV SCH ×2 (07:54→22:05)
[2022-01-19] MEDS: SODIUM CHLOR 0.9% PF (SALINE LOCK) 10ML VIAL/SYR IV SCH ×2 (09:19→21:41)
[2022-01-19] MEDS: FUROSEMIDE 40 MG/4 ML VIAL IV SCH (09:19)
[2022-01-19] MEDS: PANTOPRAZOLE 40 MG/10 ML VIAL INJ IV SCH (09:19)
[2022-01-19] MEDS ORDERED: ENOXAPARIN SOD 40 MG/0.4 ML SYRINGE SC SCH (10:00)
[2022-01-19] MEDS ORDERED: POTASSIUM EFFERVESENT TAB 25 MEQ GT SCH (10:00)
[2022-01-19] MEDS ORDERED: SODIUM FERR GLUC 62.5MG/5ML 125 MG in SODIUM CHL 0.9% 100 ML IV ONE (12:45)
[2022-01-19] MEDS ORDERED: TPN PER PHARMACY IV NR ×10 (20:00)
[2022-01-20] VITALS (93 sets, daily range): BP systolic 107–154; BP diastolic 49–77
[2022-01-20] MEDS: PIPERACILLIN-TAZOB 3.375GM 100 ML IV SCH ×2 (00:27→09:05)
[2022-01-20] MEDS: MIDAZOLAM DRIP 50 mg/50mL 50 ML IV SCH (00:28)
[2022-01-20] MEDS: fentaNYL Drip 2500mCg/250mlNS 250 ML IV SCH (00:41)
[2022-01-20 05:51] LABS: Basophils # (auto) 0.1 10 ^3/uL (0-0.2); Basophils % (auto) 0.5 % (0.0-2.0); Eosinophils # (auto) 0.4 10 ^3/uL (0-0.8); Eosinophils % (auto) 3.6 % (0.0-7.0); Hematocrit 23.7 % (36.0-46.0); Hemoglobin 7.8 g/dL (12.2-16.2); Lymphocytes # (auto) 1.1 10 ^3/uL (0.4-5.4); Lymphocytes % (auto) 10.3 % (10.0-50.0); Mean Corpuscular Hemoglobin 30.8 pg (28.0-32.0); Mean Corpuscular Hgb Conc. 32.8 g/dL (32.0-36.0); Monocytes # (auto) 0.7 10 ^3/uL (0-1.3); Monocytes % (auto) 6.8 % (0.0-12.0); Neutrophils # (auto) 8.2 10 ^3/uL (1.6-8.6); Neutrophils % (auto) 78.8 % (37.0-80.0); Red Blood Cells 2.52 10^6/uL (4.0-5.20); Red Cell Distribution Width 14.8 % (11.8-14.3); White Blood Cell 10.4 10^3/uL (4.4-10.8)
[2022-01-20] MEDS: InsuLIN REG 1unit/0.01ml Soln (100units/ml) SC SCH ×3 (06:00→23:53)
[2022-01-20 06:07] LABS: BUN/Creatinine Ratio 20.1; Calcium 7.3 mg/dL (8.5-10.1); Magnesium 2.4 mg/dL (1.6-2.6); Potassium 4.1 mmol/L (3.5-5.1)
[2022-01-20 06:11] LABS: Bilirubin, Total 0.2 mg/dL (0.2-1.0); Phosphorus 2.7 mg/dL (2.5-4.90); Total Protein 4.3 g/dL (6.4-8.2)
[2022-01-20] MEDS: PHENYLEPHRINE IV 250 ML IV SCH ×3 (06:25→23:05)
[2022-01-20] MEDS: ACCU-CHEK COMFORT CURVE STRIP VI SCH ×3 (06:55→23:54)
[2022-01-20] MEDS: LEVOTHYROXINE SODIUM 100 MCG/5 ML INJ IV SCH (06:55)
[2022-01-20] MEDS: FUROSEMIDE 40 MG/4 ML VIAL IV SCH (09:04)
[2022-01-20] MEDS: PANTOPRAZOLE 40 MG/10 ML VIAL INJ IV SCH (09:04)
[2022-01-20] MEDS: SODIUM CHLOR 0.9% PF (SALINE LOCK) 10ML VIAL/SYR IV SCH ×2 (09:08→22:06)
[2022-01-20] MEDS: SODIUM FERR GLUC 62.5MG/5ML 125 MG in SODIUM CHL 0.9% 100 ML IV SCH (12:32)
[2022-01-20] MEDS: HYDROmorphone HCL 2 MG/ML VL/or syr IV PRN (13:18)
[2022-01-20] MEDS: TPN PER PHARMACY IV NR ×10 (20:15)
[2022-01-21] VITALS (83 sets, daily range): BP systolic 118–184; BP diastolic 47–81
[2022-01-21] MEDS: PIPERACILLIN-TAZOB 3.375GM 100 ML IV SCH ×3 (00:52→16:39)
[2022-01-21] MEDS: HYDROmorphone HCL 2 MG/ML VL/or syr IV PRN ×6 (02:12→22:43)
[2022-01-21 03:49] LABS: Hemoglobin 7.1 g/dL (12.2-16.2)
[2022-01-21 03:53] LABS: Hematocrit 21.6 % (36.0-46.0); Mean Corpuscular Hemoglobin 30.7 pg (28.0-32.0); Mean Corpuscular Volume 92.9 fL (80.0-100.0); Red Blood Cells 2.32 10^6/uL (4.0-5.20); Red Cell Distribution Width 14.4 % (11.8-14.3)
[2022-01-21 03:57] LABS: Band Neutrophils % (manual) 0; Basophils % (manual) 0 (0.0-2.0); Blast Cells 0; Metamyelocytes % 0; Myelocytes % 0; Promyelocytes % 0; Reactive Lymphocytes 0
[2022-01-21 04:15] LABS: Calcium 7.1 mg/dL (8.5-10.1); Magnesium 2.5 mg/dL (1.6-2.6); Potassium 3.9 mmol/L (3.5-5.1)
[2022-01-21 04:19] LABS: BUN/Creatinine Ratio 19.5; Bilirubin, Total 0.2 mg/dL (0.2-1.0); Phosphorus 3.8 mg/dL (2.5-4.90); Total Protein 3.5 g/dL (6.4-8.2)
[2022-01-21 04:23] LABS: Albumin 0.9 g/dL (3.4-5.0)
[2022-01-21] MEDS: ALBUMIN 25% 100 ML IV SCH ×3 (04:39→20:58)
[2022-01-21] MEDS: InsuLIN REG 1unit/0.01ml Soln (100units/ml) SC SCH ×4 (06:00→23:57)
[2022-01-21] MEDS: ACCU-CHEK COMFORT CURVE STRIP VI SCH ×4 (06:11→23:57)
[2022-01-21] MEDS: LEVOTHYROXINE SODIUM 100 MCG/5 ML INJ IV SCH (06:27)
[2022-01-21 07:01] LABS: Eosinophils % (manual) 2 (0-7); Lymphocytes % (manual) 10 (10.0-50.0); Monocytes % (manual) 3 (0-12)
[2022-01-21] MEDS: PHENYLEPHRINE IV 250 ML IV SCH ×2 (07:23→09:54)
[2022-01-21] MEDS: MIDAZOLAM DRIP 50 mg/50mL 50 ML IV SCH (07:24)
[2022-01-21] MEDS: SODIUM CHLOR 0.9% PF (SALINE LOCK) 10ML VIAL/SYR IV SCH ×2 (07:24→22:13)
[2022-01-21] MEDS: fentaNYL Drip 2500mCg/250mlNS 250 ML IV SCH (07:24)
[2022-01-21] MEDS: SODIUM CHLORIDE 0.9% 1,000 ML IV SCH (08:26)
[2022-01-21] MEDS: PANTOPRAZOLE 40 MG/10 ML VIAL INJ IV SCH (08:26)
[2022-01-21 08:51] LABS: Hematocrit 20.4 % (36.0-46.0)
[2022-01-21 08:56] LABS: Hemoglobin 6.8 g/dL (12.2-16.2)
[2022-01-21] MEDS: SODIUM FERR GLUC 62.5MG/5ML 125 MG in SODIUM CHL 0.9% 100 ML IV SCH (09:30)
[2022-01-21 11:27] LABS: Urine Bacteria NONE SEEN /hpf (None Seen); Urine Blood 1+ /uL (Negative); Urine Budding Yeast MANY /hpf (None Seen); Urine Specific Gravity 1.011 (1.001-1.035); Urine WBC 15 /hpf (0 - 5)
[2022-01-21 11:36] LABS: Protein, Urine 52.9 mg/dL (0.0-11.9)
[2022-01-21] MEDS ORDERED: KETOROLAC TROMETH 30 MG/ML 1ML VIAL IV PRN (13:15)
[2022-01-21] MEDS ORDERED: FUROSEMIDE 20 MG/2 ML VIAL IV ONE (13:15)
[2022-01-21] MEDS: hydrALAZINE HCL 20 MG/ML VL IV PRN (13:34)
[2022-01-21] MEDS: TPN PER PHARMACY IV NR ×17 (19:37→19:40)
[2022-01-21 19:47] LABS: Hematocrit 22.2 % (36.0-46.0); Hemoglobin 7.3 g/dL (12.2-16.2)
[2022-01-22] VITALS (22 sets, daily range): BP systolic 130–169; BP diastolic 40–77
[2022-01-22] MEDS: PHENYLEPHRINE IV 250 ML IV SCH ×3 (00:05→12:14)
[2022-01-22] MEDS: PIPERACILLIN-TAZOB 3.375GM 100 ML IV SCH ×2 (00:54→08:25)
[2022-01-22] MEDS: SODIUM CHLORIDE 0.9% 1,000 ML IV SCH (00:54)
[2022-01-22] MEDS: HYDROmorphone HCL 2 MG/ML VL/or syr IV PRN ×7 (01:47→22:51)
[2022-01-22 03:44] LABS: Eosinophils # (auto) 0.3 10 ^3/uL (0-0.8); Eosinophils % (auto) 4.1 % (0.0-7.0); Hemoglobin 7.8 g/dL (12.2-16.2); Lymphocytes # (auto) 0.6 10 ^3/uL (0.4-5.4); Mean Corpuscular Hemoglobin 30.4 pg (28.0-32.0); Monocytes # (auto) 0.5 10 ^3/uL (0-1.3); White Blood Cell 7.3 10^3/uL (4.4-10.8)
[2022-01-22 03:47] LABS: Basophils # (auto) 0.1 10 ^3/uL (0-0.2); Basophils % (auto) 0.8 % (0.0-2.0); Hematocrit 23.2 % (36.0-46.0); Lymphocytes % (auto) 7.7 % (10.0-50.0); Mean Corpuscular Hgb Conc. 33.5 g/dL (32.0-36.0); Mean Corpuscular Volume 90.8 fL (80.0-100.0); Monocytes % (auto) 6.9 % (0.0-12.0); Neutrophils # (auto) 5.8 10 ^3/uL (1.6-8.6); Neutrophils % (auto) 80.5 % (37.0-80.0); Red Blood Cells 2.56 10^6/uL (4.0-5.20); Red Cell Distribution Width 15.5 % (11.8-14.3)
[2022-01-22 04:03] LABS: Albumin 1.8 g/dL (3.4-5.0); Calcium 7.5 mg/dL (8.5-10.1); Magnesium 2.9 mg/dL (1.6-2.6); Potassium 3.7 mmol/L (3.5-5.1)
[2022-01-22 04:07] LABS: Bilirubin, Total 0.4 mg/dL (0.2-1.0); Total Protein 4.8 g/dL (6.4-8.2)
[2022-01-22] MEDS: InsuLIN REG 1unit/0.01ml Soln (100units/ml) SC SCH ×3 (06:00→17:36)
[2022-01-22] MEDS: ACCU-CHEK COMFORT CURVE STRIP VI SCH ×3 (06:26→17:36)
[2022-01-22] MEDS: LEVOTHYROXINE SODIUM 100 MCG/5 ML INJ IV SCH (06:36)
[2022-01-22] MEDS: SODIUM CHLOR 0.9% PF (SALINE LOCK) 10ML VIAL/SYR IV SCH ×2 (08:15→23:50)
[2022-01-22] MEDS: MIDAZOLAM DRIP 50 mg/50mL 50 ML IV SCH (08:16)
[2022-01-22] MEDS: fentaNYL Drip 2500mCg/250mlNS 250 ML IV SCH (08:16)
[2022-01-22] MEDS: PANTOPRAZOLE 40 MG/10 ML VIAL INJ IV SCH (08:25)
[2022-01-22] MEDS: SODIUM FERR GLUC 62.5MG/5ML 125 MG in SODIUM CHL 0.9% 100 ML IV SCH (12:00)
[2022-01-22] MEDS: TPN PER PHARMACY IV NR ×7 (19:46)
[2022-01-22] MEDS ORDERED: TPN PER PHARMACY IV NR ×16 (20:00)
[2022-01-22] MEDS: CEFEPIME 2 GM in SODIUM CHL 0.9% 50 ML IV SCH (23:50)
[2022-01-23] MEDS: HYDROmorphone HCL 2 MG/ML VL/or syr IV PRN ×7 (01:48→21:20)
[2022-01-23 05:00] VITALS: BP 142/72
[2022-01-23 05:11] LABS: Eosinophils # (auto) 0.1 10 ^3/uL (0-0.8); Hemoglobin 7.7 g/dL (12.2-16.2); Lymphocytes # (auto) 0.6 10 ^3/uL (0.4-5.4); Monocytes # (auto) 0.4 10 ^3/uL (0-1.3); Neutrophils # (auto) 5.5 10 ^3/uL (1.6-8.6); Red Cell Distribution Width 15.3 % (11.8-14.3); White Blood Cell 6.6 10^3/uL (4.4-10.8)
[2022-01-23 05:15] LABS: Basophils # (auto) 0 10 ^3/uL (0-0.2); Basophils % (auto) 0.5 % (0.0-2.0); Eosinophils % (auto) 0.8 % (0.0-7.0); Hematocrit 22.5 % (36.0-46.0); Lymphocytes % (auto) 9.6 % (10.0-50.0); Mean Corpuscular Hemoglobin 31.4 pg (28.0-32.0); Mean Corpuscular Hgb Conc. 34.1 g/dL (32.0-36.0); Mean Corpuscular Volume 92.2 fL (80.0-100.0); Monocytes % (auto) 5.6 % (0.0-12.0); Neutrophils % (auto) 83.5 % (37.0-80.0); Nucleated Red Blood Cells % 0.1 %; Red Blood Cells 2.44 10^6/uL (4.0-5.20)
[2022-01-23 05:29] LABS: Albumin 1.5 g/dL (3.4-5.0); Calcium 7.1 mg/dL (8.5-10.1); Magnesium 2.4 mg/dL (1.6-2.6); Potassium 3.7 mmol/L (3.5-5.1)
[2022-01-23 05:34] LABS: BUN/Creatinine Ratio 17.5; Bilirubin, Total 0.5 mg/dL (0.2-1.0); Phosphorus 3.2 mg/dL (2.5-4.90); Total Protein 4.4 g/dL (6.4-8.2)
[2022-01-23 05:50] LABS: % Iron Saturation 20.4 % (15-50)
[2022-01-23] MEDS: InsuLIN REG 1unit/0.01ml Soln (100units/ml) SC SCH ×2 (06:00)
[2022-01-23] MEDS: ACCU-CHEK COMFORT CURVE STRIP VI SCH ×3 (06:29→11:42)
[2022-01-23] MEDS: LEVOTHYROXINE SODIUM 100 MCG/5 ML INJ IV SCH (06:50)
[2022-01-23] MEDS ORDERED: KETOROLAC TROMETH 30 MG/ML 1ML VIAL IV ONE (07:45)
[2022-01-23 09:00] VITALS: BP 131/72
[2022-01-23] MEDS: CEFEPIME 2 GM in SODIUM CHL 0.9% 50 ML IV SCH (09:40)
[2022-01-23] MEDS: SODIUM CHLOR 0.9% PF (SALINE LOCK) 10ML VIAL/SYR IV SCH ×2 (09:40→22:16)
[2022-01-23] MEDS: PANTOPRAZOLE 40 MG/10 ML VIAL INJ IV SCH (09:40)
[2022-01-23] MEDS ORDERED: oxyCODONE ER 10 MG TAB PO ONE (11:15)
[2022-01-23] MEDS: SODIUM FERR GLUC 62.5MG/5ML 125 MG in SODIUM CHL 0.9% 100 ML IV SCH (12:32)
[2022-01-23 13:00] VITALS: BP 138/78
[2022-01-23 17:00] VITALS: BP 137/77
[2022-01-23] MEDS ORDERED: TPN PER PHARMACY IV NR ×9 (20:00)
[2022-01-23 22:00] VITALS: BP 146/84
[2022-01-23] MEDS: oxyCODONE ER 10 MG TAB PO SCH (22:14)
[2022-01-23] MEDS: CEFEPIME 1GM/ 50ML 50 ML IV SCH (22:17)
[2022-01-24] MEDS: HYDROmorphone HCL 2 MG/ML VL/or syr IV PRN ×3 (00:21→06:28)
[2022-01-24 05:00] VITALS: BP 133/79
[2022-01-24] MEDS: PROMETHAZINE HCL 25 MG/ML 1ML IV PRN (06:27)
[2022-01-24] MEDS: LEVOTHYROXINE SODIUM 50 MCG TAB PO SCH (06:53)
[2022-01-24 09:00] VITALS: BP 155/96
[2022-01-24] MEDS: oxyCODONE ER 10 MG TAB PO SCH ×2 (09:36→21:53)
[2022-01-24] MEDS: PANTOPRAZOLE 40 MG/10 ML VIAL INJ IV SCH (09:36)
[2022-01-24] MEDS: SODIUM CHLOR 0.9% PF (SALINE LOCK) 10ML VIAL/SYR IV SCH ×2 (09:37→21:35)
[2022-01-24] MEDS: hydrALAZINE HCL 20 MG/ML VL IV PRN (09:48)
[2022-01-24] MEDS: CEFEPIME 1GM/ 50ML 50 ML IV SCH ×2 (09:49→21:36)
[2022-01-24] MEDS ORDERED: LORazepam 2MG/ML-1ML VIAL ONE (10:31)
[2022-01-24] MEDS ORDERED: ADENOSINE 6 MG/2 ML INJ IV ONE (10:40)
[2022-01-24] MEDS ORDERED: dilTIAZem 25 MG/5 ML VIAL IV ONE (10:45)
[2022-01-24] MEDS ORDERED: LORazepam 2MG/ML-1ML VIAL IV ONE (10:45)
[2022-01-24] MEDS ORDERED: METOPROLOL TARTRATE 1MG/1ML-5ML VIAL IV ONE (10:46)
[2022-01-24] MEDS ORDERED: ENOXAPARIN SOD 40 MG/0.4 ML SYRINGE SC ONE (11:00)
[2022-01-24] MEDS ORDERED: METOPROLOL TARTRATE 50 MG TAB PO ONE (11:00)
[2022-01-24] MEDS ORDERED: FUROSEMIDE 40 MG/4 ML VIAL IV ONE (11:30)
[2022-01-24] MEDS ORDERED: POTASSIUM CHL 20 Meq TABLET PO ONE (11:30)
[2022-01-24] MEDS: ACETAMINOPHEN 500 MG TAB PO PRN ×2 (12:29→19:19)
[2022-01-24 13:00] VITALS: BP 122/81
[2022-01-24 13:42] LABS: Basophils # (auto) 0.1 10 ^3/uL (0-0.2); Basophils % (auto) 0.8 % (0.0-2.0); Eosinophils # (auto) 0 10 ^3/uL (0-0.8); Hematocrit 27.4 % (36.0-46.0); Hemoglobin 8.7 g/dL (12.2-16.2); Lymphocytes # (auto) 0.7 10 ^3/uL (0.4-5.4); Lymphocytes % (auto) 5.5 % (10.0-50.0); Mean Corpuscular Hemoglobin 29.4 pg (28.0-32.0); Mean Corpuscular Hgb Conc. 31.8 g/dL (32.0-36.0); Mean Corpuscular Volume 92.5 fL (80.0-100.0); Monocytes # (auto) 0.6 10 ^3/uL (0-1.3); Monocytes % (auto) 4.4 % (0.0-12.0); Neutrophils # (auto) 11.9 10 ^3/uL (1.6-8.6); Neutrophils % (auto) 89.3 % (37.0-80.0); Red Blood Cells 2.96 10^6/uL (4.0-5.20); Red Cell Distribution Width 15.2 % (11.8-14.3)
[2022-01-24 13:53] LABS: White Blood Cell 13.3 10^3/uL (4.4-10.8)
[2022-01-24 14:02] LABS: Calcium 7.6 mg/dL (8.5-10.1); Magnesium 2.1 mg/dL (1.6-2.6); Potassium 4.1 mmol/L (3.5-5.1)
[2022-01-24] MEDS: SODIUM FERR GLUC 62.5MG/5ML 125 MG in SODIUM CHL 0.9% 100 ML IV SCH (15:56)
[2022-01-24] MEDS ORDERED: DIGOXIN 0.25 MG TAB PO ONE (16:15)
[2022-01-24 17:17] VITALS: BP 112/76
[2022-01-24 21:29] VITALS: BP 106/77
[2022-01-24] MEDS: SACUBITRIL-VALSARTAN 24mg/26mg TAB PO SCH (21:36)
[2022-01-24] MEDS ORDERED: METOPROLOL TARTRATE 50 MG TAB PO SCH (22:00)
[2022-01-25 04:40] VITALS: BP 131/74
[2022-01-25 05:57] LABS: BUN/Creatinine Ratio 22.3; Calcium 7.2 mg/dL (8.5-10.1); Potassium 4.1 mmol/L (3.5-5.1)
[2022-01-25] MEDS: LEVOTHYROXINE SODIUM 50 MCG TAB PO SCH (06:12)
[2022-01-25] MEDS: ACETAMINOPHEN 500 MG TAB PO PRN (06:17)
[2022-01-25 09:00] VITALS: BP 125/72
[2022-01-25] MEDS: SODIUM CHLOR 0.9% PF (SALINE LOCK) 10ML VIAL/SYR IV SCH ×2 (10:00→21:57)
[2022-01-25] MEDS ORDERED: HYDROmorphone HCL 2 MG/ML VL/or syr IV PRN (10:30)
[2022-01-25] MEDS ORDERED: ACETAMINOPHEN/CODEINE#3 (300/30mg) TAB PO PRN (10:45)
[2022-01-25] MEDS: CEFEPIME 1GM/ 50ML 50 ML IV SCH ×2 (10:48→21:37)
[2022-01-25] MEDS: FUROSEMIDE 40 MG/4 ML VIAL IV SCH (10:51)
[2022-01-25] MEDS: METOPROLOL TARTRATE 50 MG TAB PO SCH ×2 (10:53→21:41)
[2022-01-25] MEDS: POTASSIUM CHL 20 Meq TABLET PO SCH (10:54)
[2022-01-25] MEDS: SACUBITRIL-VALSARTAN 24mg/26mg TAB PO SCH ×2 (10:54→21:37)
[2022-01-25] MEDS: ENOXAPARIN SOD 40 MG/0.4 ML SYRINGE SC SCH (10:54)
[2022-01-25] MEDS: KETOROLAC TROMETH 30 MG/ML 1ML VIAL IV PRN ×2 (11:12→20:27)
[2022-01-25 13:00] VITALS: BP 113/66
[2022-01-25] MEDS: SODIUM FERR GLUC 62.5MG/5ML 125 MG in SODIUM CHL 0.9% 100 ML IV SCH (13:42)
[2022-01-25 17:25] VITALS: BP 126/76
[2022-01-25] MEDS: HYDROmorphone HCL 2 MG/ML VL/or syr IV PRN ×2 (17:40→23:43)
[2022-01-25] MEDS: oxyCODONE ER 10 MG TAB PO SCH (21:40)
[2022-01-25 22:00] VITALS: BP 124/69
[2022-01-26] MEDS: HYDROmorphone HCL 2 MG/ML VL/or syr IV PRN ×4 (03:54→20:36)
[2022-01-26 05:00] VITALS: BP 118/71
[2022-01-26] MEDS: LEVOTHYROXINE SODIUM 50 MCG TAB PO SCH (05:58)
[2022-01-26 06:08] LABS: Basophils # (auto) 0.1 10 ^3/uL (0-0.2); Basophils % (auto) 0.7 % (0.0-2.0); Eosinophils # (auto) 0.7 10 ^3/uL (0-0.8); Eosinophils % (auto) 6.1 % (0.0-7.0); Hematocrit 29.1 % (36.0-46.0); Hemoglobin 9.2 g/dL (12.2-16.2); Lymphocytes # (auto) 1.8 10 ^3/uL (0.4-5.4); Lymphocytes % (auto) 14.6 % (10.0-50.0); Mean Corpuscular Hemoglobin 29.3 pg (28.0-32.0); Mean Corpuscular Hgb Conc. 31.5 g/dL (32.0-36.0); Mean Corpuscular Volume 93.1 fL (80.0-100.0); Monocytes # (auto) 0.8 10 ^3/uL (0-1.3); Monocytes % (auto) 6.8 % (0.0-12.0); Neutrophils # (auto) 8.9 10 ^3/uL (1.6-8.6); Neutrophils % (auto) 71.8 % (37.0-80.0); Nucleated Red Blood Cells % 0.1 %; Red Blood Cells 3.13 10^6/uL (4.0-5.20); Red Cell Distribution Width 15.1 % (11.8-14.3); White Blood Cell 12.4 10^3/uL (4.4-10.8)
[2022-01-26 06:26] LABS: BUN/Creatinine Ratio 19.9; Calcium 7.3 mg/dL (8.5-10.1); Potassium 3.8 mmol/L (3.5-5.1)
[2022-01-26 08:12] VITALS: BP 119/67
[2022-01-26] MEDS ORDERED: DIGOXIN 0.125 MG TAB PO ONE (10:00)
[2022-01-26] MEDS: CEFEPIME 1GM/ 50ML 50 ML IV SCH ×2 (10:59→21:47)
[2022-01-26] MEDS: FUROSEMIDE 40 MG/4 ML VIAL IV SCH (10:59)
[2022-01-26] MEDS: POTASSIUM CHL 20 Meq TABLET PO SCH (11:00)
[2022-01-26] MEDS: ENOXAPARIN SOD 40 MG/0.4 ML SYRINGE SC SCH (11:00)
[2022-01-26] MEDS: PANTOPRAZOLE 40 MG TAB PO SCH (11:00)
[2022-01-26] MEDS: METOPROLOL TARTRATE 50 MG TAB PO SCH ×2 (11:01→21:48)
[2022-01-26] MEDS: oxyCODONE ER 10 MG TAB PO SCH ×2 (11:01→21:49)
[2022-01-26] MEDS: SACUBITRIL-VALSARTAN 24mg/26mg TAB PO SCH ×2 (11:02→21:48)
[2022-01-26] MEDS: SODIUM CHLOR 0.9% PF (SALINE LOCK) 10ML VIAL/SYR IV SCH ×2 (11:02→21:48)
[2022-01-26] MEDS ORDERED: ENOXAPARIN SOD 60 MG/0.6 ML SYRINGE SC ONE (13:00)
[2022-01-26] MEDS: SODIUM FERR GLUC 62.5MG/5ML 125 MG in SODIUM CHL 0.9% 100 ML IV SCH (13:11)
[2022-01-26 13:14] VITALS: BP 120/70
[2022-01-26] MEDS: DIGOXIN 0.125 MG TAB PO SCH (16:51)
[2022-01-26 17:00] VITALS: BP 127/66
[2022-01-26] MEDS: ENOXAPARIN SOD 100 MG/1 ML SYRINGE SC SCH (21:49)
[2022-01-26 23:37] VITALS: BP 122/73
[2022-01-27] MEDS: HYDROmorphone HCL 2 MG/ML VL/or syr IV PRN ×3 (00:42→20:18)
[2022-01-27 05:34] VITALS: BP 129/69
[2022-01-27] MEDS: LEVOTHYROXINE SODIUM 50 MCG TAB PO SCH (06:03)
[2022-01-27 08:40] VITALS: BP 133/60
[2022-01-27] MEDS: SACUBITRIL-VALSARTAN 24mg/26mg TAB PO SCH ×2 (09:14→22:46)
[2022-01-27] MEDS: POTASSIUM CHL 20 Meq TABLET PO SCH (09:14)
[2022-01-27] MEDS: PANTOPRAZOLE 40 MG TAB PO SCH (09:14)
[2022-01-27] MEDS: METOPROLOL TARTRATE 50 MG TAB PO SCH ×2 (09:18→22:46)
[2022-01-27] MEDS: ENOXAPARIN SOD 100 MG/1 ML SYRINGE SC SCH ×2 (09:21→22:47)
[2022-01-27] MEDS: FUROSEMIDE 40 MG/4 ML VIAL IV SCH (09:21)
[2022-01-27] MEDS: oxyCODONE ER 10 MG TAB PO SCH ×2 (09:36→22:47)
[2022-01-27] MEDS: CEFEPIME 1GM/ 50ML 50 ML IV SCH (11:18)
[2022-01-27] MEDS: SODIUM CHLOR 0.9% PF (SALINE LOCK) 10ML VIAL/SYR IV SCH (11:33)
[2022-01-27 12:12] VITALS: BP 129/72
[2022-01-27] MEDS: SODIUM FERR GLUC 62.5MG/5ML 125 MG in SODIUM CHL 0.9% 100 ML IV SCH (12:29)
[2022-01-27] MEDS: HYDROcodone-ACET 5/325MG TAB PO PRN (16:48)
[2022-01-27 17:00] VITALS: BP 131/65
[2022-01-27 22:00] VITALS: BP 112/61
[2022-01-28] MEDS: HYDROmorphone HCL 2 MG/ML VL/or syr IV PRN ×3 (02:59→23:03)
[2022-01-28] MEDS: CEFEPIME 1GM/ 50ML 50 ML IV SCH ×3 (02:59→21:15)
[2022-01-28] MEDS: SODIUM CHLOR 0.9% PF (SALINE LOCK) 10ML VIAL/SYR IV SCH ×3 (03:00→21:15)
[2022-01-28 05:00] VITALS: BP 114/65
[2022-01-28] MEDS: LEVOTHYROXINE SODIUM 50 MCG TAB PO SCH (07:05)
[2022-01-28 09:00] VITALS: BP 113/65
[2022-01-28] MEDS: FUROSEMIDE 40 MG/4 ML VIAL IV SCH (09:26)
[2022-01-28] MEDS: POTASSIUM CHL 20 Meq TABLET PO SCH (09:28)
[2022-01-28] MEDS: METOPROLOL TARTRATE 50 MG TAB PO SCH ×2 (09:28→21:29)
[2022-01-28] MEDS: SACUBITRIL-VALSARTAN 24mg/26mg TAB PO SCH ×2 (09:29→21:16)
[2022-01-28] MEDS: oxyCODONE ER 10 MG TAB PO SCH ×2 (09:29→21:15)
[2022-01-28] MEDS: PANTOPRAZOLE 40 MG TAB PO SCH (09:29)
[2022-01-28] MEDS: ENOXAPARIN SOD 100 MG/1 ML SYRINGE SC SCH ×2 (09:39→21:16)
[2022-01-28] MEDS: HYDROcodone-ACET 5/325MG TAB PO PRN (12:14)
[2022-01-28 13:00] VITALS: BP 132/64
[2022-01-28] MEDS: SODIUM FERR GLUC 62.5MG/5ML 125 MG in SODIUM CHL 0.9% 100 ML IV SCH (13:40)
[2022-01-28 16:33] VITALS: BP 114/70
[2022-01-28 22:00] VITALS: BP 125/70
[2022-01-29] MEDS: HYDROcodone-ACET 5/325MG TAB PO PRN ×3 (04:36→23:26)
[2022-01-29 05:00] VITALS: BP 124/68
[2022-01-29] MEDS: LEVOTHYROXINE SODIUM 50 MCG TAB PO SCH (06:31)
[2022-01-29 09:00] VITALS: BP 136/67
[2022-01-29] MEDS: METOPROLOL TARTRATE 50 MG TAB PO SCH ×2 (10:14→22:34)
[2022-01-29] MEDS: CEFEPIME 1GM/ 50ML 50 ML IV SCH ×2 (10:16→22:36)
[2022-01-29] MEDS: FUROSEMIDE 40 MG/4 ML VIAL IV SCH (10:17)
[2022-01-29] MEDS: ENOXAPARIN SOD 100 MG/1 ML SYRINGE SC SCH (10:17)
[2022-01-29] MEDS: PANTOPRAZOLE 40 MG TAB PO SCH (10:18)
[2022-01-29] MEDS: oxyCODONE ER 10 MG TAB PO SCH ×2 (10:19→22:35)
[2022-01-29] MEDS: DIGOXIN 0.125 MG TAB PO SCH (10:20)
[2022-01-29] MEDS: SACUBITRIL-VALSARTAN 24mg/26mg TAB PO SCH ×2 (10:21→22:34)
[2022-01-29] MEDS: SODIUM CHLOR 0.9% PF (SALINE LOCK) 10ML VIAL/SYR IV SCH ×2 (10:22→22:27)
[2022-01-29] MEDS ORDERED: NYSTATIN (MOUTH-THROAT) 500,000 UNITS/5 ML SUSP MT ONE (11:45)
[2022-01-29] MEDS ORDERED: POTASSIUM EFFERVESENT TAB 25 MEQ PO ONE (12:45)
[2022-01-29 12:56] VITALS: BP 135/75
[2022-01-29] MEDS: SODIUM FERR GLUC 62.5MG/5ML 125 MG in SODIUM CHL 0.9% 100 ML IV SCH (13:10)
[2022-01-29 17:00] VITALS: BP 120/70
[2022-01-29] MEDS: NYSTATIN (MOUTH-THROAT) 500,000 UNITS/5 ML SUSP MT SCH ×2 (18:02→22:27)
[2022-01-29] MEDS: HYDROmorphone HCL 2 MG/ML VL/or syr IV PRN (19:35)
[2022-01-29 22:00] VITALS: BP 120/65
[2022-01-29] MEDS: APIXABAN 5 MG TAB PO SCH (22:35)
[2022-01-30] MEDS: HYDROmorphone HCL 2 MG/ML VL/or syr IV PRN ×3 (03:48→23:22)
[2022-01-30 05:00] VITALS: BP 120/64
[2022-01-30] MEDS: LEVOTHYROXINE SODIUM 50 MCG TAB PO SCH (06:20)
[2022-01-30] MEDS: NYSTATIN (MOUTH-THROAT) 500,000 UNITS/5 ML SUSP MT SCH ×4 (06:20→22:31)
[2022-01-30 06:37] LABS: Basophils # (auto) 0.1 10 ^3/uL (0-0.2); Eosinophils # (auto) 0.6 10 ^3/uL (0-0.8); Monocytes # (auto) 0.8 10 ^3/uL (0-1.3); Neutrophils # (auto) 10.5 10 ^3/uL (1.6-8.6)
[2022-01-30 06:40] LABS: Basophils % (auto) 0.6 % (0.0-2.0); Eosinophils % (auto) 4.2 % (0.0-7.0); Hematocrit 26.8 % (36.0-46.0); Hemoglobin 8.8 g/dL (12.2-16.2); Lymphocytes % (auto) 14.1 % (10.0-50.0); Mean Corpuscular Hemoglobin 30.1 pg (28.0-32.0); Mean Corpuscular Volume 91.1 fL (80.0-100.0); Monocytes % (auto) 5.8 % (0.0-12.0); Neutrophils % (auto) 75.3 % (37.0-80.0); Red Blood Cells 2.94 10^6/uL (4.0-5.20); Red Cell Distribution Width 15.4 % (11.8-14.3)
[2022-01-30 07:14] LABS: Albumin 1.3 g/dL (3.4-5.0); BUN/Creatinine Ratio 11.8; Bilirubin, Total 0.3 mg/dL (0.2-1.0); Calcium 6.9 mg/dL (8.5-10.1); Total Protein 4.6 g/dL (6.4-8.2)
[2022-01-30 07:41] LABS: Potassium 2.8 mmol/L (3.5-5.1)
[2022-01-30] MEDS: POTASSIUM EFFERVESENT TAB 25 MEQ PO SCH (08:12)
[2022-01-30] MEDS: PANTOPRAZOLE 40 MG TAB PO SCH (08:13)
[2022-01-30] MEDS: FUROSEMIDE 40 MG TAB PO SCH (08:15)
[2022-01-30] MEDS ORDERED: POTASSIUM CHLORIDE 40 MEQ, LIDOCAINE 1% (LOCAL ANESTH.) 4 ML in SODIUM CHL 0.9% 250 ML IV ONE (08:30)
[2022-01-30 09:04] VITALS: BP 121/71
[2022-01-30] MEDS: oxyCODONE ER 10 MG TAB PO SCH (10:03)
[2022-01-30] MEDS: APIXABAN 5 MG TAB PO SCH ×2 (10:04→22:31)
[2022-01-30] MEDS: SACUBITRIL-VALSARTAN 24mg/26mg TAB PO SCH ×2 (10:04→22:31)
[2022-01-30] MEDS: METOPROLOL TARTRATE 50 MG TAB PO SCH ×2 (10:04→22:32)
[2022-01-30] MEDS: CEFEPIME 1GM/ 50ML 50 ML IV SCH (10:07)
[2022-01-30] MEDS ORDERED: POTASSIUM EFFERVESENT TAB 25 MEQ PO ONE ×2 (10:30→12:30)
[2022-01-30] MEDS: HYDROcodone-ACET 5/325MG TAB PO PRN ×2 (12:16→17:23)
[2022-01-30] MEDS ORDERED: FLUCONAZOLE 100 MG TAB PO ONE (12:30)
[2022-01-30 13:00] VITALS: BP 105/61
[2022-01-30] MEDS: levoFLOXacin 500 MG TAB PO SCH (13:15)
[2022-01-30] MEDS: SODIUM FERR GLUC 62.5MG/5ML 125 MG in SODIUM CHL 0.9% 100 ML IV SCH (13:15)
[2022-01-30] MEDS: SODIUM CHLOR 0.9% PF (SALINE LOCK) 10ML VIAL/SYR IV SCH ×2 (13:52→22:22)
[2022-01-30] MEDS: MAGNESIUM SULFATE 1GM/100ML 100 ML IV SCH ×2 (14:00→14:40)
[2022-01-30] MEDS: metroNIDAZOLE 500 MG TAB PO SCH ×2 (14:40→22:32)
[2022-01-30 17:00] VITALS: BP 110/72
[2022-01-30] MEDS ORDERED: MAGNESIUM SULFATE 1GM/100ML 100 ML IV SCH (21:00)
[2022-01-30 22:00] VITALS: BP 112/62
[2022-01-31] MEDS: HYDROcodone-ACET 5/325MG TAB PO PRN ×3 (02:31→18:06)
[2022-01-31 05:00] VITALS: BP 109/61
[2022-01-31 05:36] LABS: Eosinophils # (auto) 0.4 10 ^3/uL (0-0.8); Hemoglobin 8.6 g/dL (12.2-16.2); Nucleated Red Blood Cells % 0.1 %
[2022-01-31 05:40] LABS: Basophils # (auto) 0.1 10 ^3/uL (0-0.2); Basophils % (auto) 0.5 % (0.0-2.0); Eosinophils % (auto) 3.4 % (0.0-7.0); Hematocrit 27.2 % (36.0-46.0); Lymphocytes # (auto) 1.8 10 ^3/uL (0.4-5.4); Lymphocytes % (auto) 14.5 % (10.0-50.0); Mean Corpuscular Hemoglobin 28.7 pg (28.0-32.0); Mean Corpuscular Hgb Conc. 31.5 g/dL (32.0-36.0); Mean Corpuscular Volume 91.1 fL (80.0-100.0); Monocytes # (auto) 0.9 10 ^3/uL (0-1.3); Monocytes % (auto) 7.1 % (0.0-12.0); Neutrophils # (auto) 9.3 10 ^3/uL (1.6-8.6); Neutrophils % (auto) 74.5 % (37.0-80.0); Red Blood Cells 2.98 10^6/uL (4.0-5.20); Red Cell Distribution Width 14.7 % (11.8-14.3); White Blood Cell 12.5 10^3/uL (4.4-10.8)
[2022-01-31 06:07] LABS: BUN/Creatinine Ratio 11.6; Calcium 7.6 mg/dL (8.5-10.1); Potassium 3.2 mmol/L (3.5-5.1)
[2022-01-31] MEDS: metroNIDAZOLE 500 MG TAB PO SCH ×3 (06:17→22:23)
[2022-01-31] MEDS: NYSTATIN (MOUTH-THROAT) 500,000 UNITS/5 ML SUSP MT SCH ×4 (06:17→22:23)
[2022-01-31] MEDS: LEVOTHYROXINE SODIUM 50 MCG TAB PO SCH (06:18)
[2022-01-31 09:00] VITALS: BP 129/59
[2022-01-31] MEDS: HYDROmorphone HCL 2 MG/ML VL/or syr IV PRN ×2 (09:45→23:42)
[2022-01-31] MEDS: SODIUM CHLOR 0.9% PF (SALINE LOCK) 10ML VIAL/SYR IV SCH ×2 (10:00→22:23)
[2022-01-31] MEDS: APIXABAN 5 MG TAB PO SCH ×2 (10:47→22:23)
[2022-01-31] MEDS: FLUCONAZOLE 100 MG TAB PO SCH (10:47)
[2022-01-31] MEDS: SACUBITRIL-VALSARTAN 24mg/26mg TAB PO SCH ×2 (10:48→22:23)
[2022-01-31] MEDS: FUROSEMIDE 40 MG TAB PO SCH (10:48)
[2022-01-31] MEDS: levoFLOXacin 500 MG TAB PO SCH (10:48)
[2022-01-31] MEDS: METOPROLOL TARTRATE 50 MG TAB PO SCH ×2 (10:49→22:25)
[2022-01-31] MEDS: PANTOPRAZOLE 40 MG TAB PO SCH (10:49)
[2022-01-31] MEDS: POTASSIUM EFFERVESENT TAB 25 MEQ PO SCH (10:52)
[2022-01-31] MEDS ORDERED: POTASSIUM EFFERVESENT TAB 25 MEQ PO ONE (11:00)
[2022-01-31 12:21] VITALS: BP 124/71
[2022-01-31 16:55] VITALS: BP 108/69
[2022-01-31] MEDS: FERROUS SULFATE 325mg EC TAB PO SCH (18:06)
[2022-02-01 00:14] VITALS: BP 111/62
[2022-02-01] MEDS: HYDROcodone-ACET 5/325MG TAB PO PRN ×2 (03:12→14:18)
[2022-02-01 06:01] VITALS: BP 111/61
[2022-02-01] MEDS: metroNIDAZOLE 500 MG TAB PO SCH ×3 (06:07→21:53)
[2022-02-01] MEDS: NYSTATIN (MOUTH-THROAT) 500,000 UNITS/5 ML SUSP MT SCH ×4 (06:07→20:12)
[2022-02-01] MEDS: LEVOTHYROXINE SODIUM 50 MCG TAB PO SCH (06:43)
[2022-02-01] MEDS: PANTOPRAZOLE 40 MG TAB PO SCH (08:31)
[2022-02-01] MEDS: FERROUS SULFATE 325mg EC TAB PO SCH ×2 (08:31→20:12)
[2022-02-01] MEDS: SACUBITRIL-VALSARTAN 24mg/26mg TAB PO SCH ×2 (08:34→21:53)
[2022-02-01] MEDS: APIXABAN 5 MG TAB PO SCH ×2 (08:34→21:54)
[2022-02-01] MEDS: POTASSIUM EFFERVESENT TAB 25 MEQ PO SCH (08:34)
[2022-02-01] MEDS: FUROSEMIDE 40 MG TAB PO SCH (08:35)
[2022-02-01] MEDS: levoFLOXacin 500 MG TAB PO SCH (08:38)
[2022-02-01] MEDS: FLUCONAZOLE 100 MG TAB PO SCH (08:39)
[2022-02-01] MEDS: METOPROLOL TARTRATE 50 MG TAB PO SCH ×2 (08:46→21:54)
[2022-02-01 09:31] VITALS: BP 117/64
[2022-02-01] MEDS: HYDROmorphone HCL 2 MG/ML VL/or syr IV PRN ×2 (11:03→21:55)
[2022-02-01 12:26] VITALS: BP 122/69
[2022-02-01 16:57] VITALS: BP 101/62
[2022-02-01] MEDS: SODIUM CHLOR 0.9% PF (SALINE LOCK) 10ML VIAL/SYR IV SCH ×2 (20:13→21:59)
[2022-02-01 22:00] VITALS: BP 122/73
[2022-02-02] MEDS: HYDROcodone-ACET 5/325MG TAB PO PRN (03:37)
[2022-02-02 05:03] LABS: Basophils # (auto) 0 10 ^3/uL (0-0.2); Basophils % (auto) 0.4 % (0.0-2.0); Eosinophils # (auto) 0.4 10 ^3/uL (0-0.8); Eosinophils % (auto) 3.7 % (0.0-7.0); Hematocrit 26.7 % (36.0-46.0); Hemoglobin 8.6 g/dL (12.2-16.2); Lymphocytes # (auto) 1.9 10 ^3/uL (0.4-5.4); Mean Corpuscular Hemoglobin 29.4 pg (28.0-32.0); Mean Corpuscular Hgb Conc. 32.3 g/dL (32.0-36.0); Mean Corpuscular Volume 90.9 fL (80.0-100.0); Monocytes # (auto) 0.9 10 ^3/uL (0-1.3); Monocytes % (auto) 8.6 % (0.0-12.0); Neutrophils # (auto) 7.4 10 ^3/uL (1.6-8.6); Neutrophils % (auto) 69.3 % (37.0-80.0); Nucleated Red Blood Cells % 0.1 %; Red Blood Cells 2.94 10^6/uL (4.0-5.20); Red Cell Distribution Width 14.5 % (11.8-14.3); White Blood Cell 10.6 10^3/uL (4.4-10.8)
[2022-02-02 05:16] VITALS: BP 109/66
[2022-02-02 05:24] LABS: Potassium 3.2 mmol/L (3.5-5.1)
[2022-02-02 05:30] LABS: Albumin 1.3 g/dL (3.4-5.0); BUN/Creatinine Ratio 9.2; Bilirubin, Total 0.1 mg/dL (0.2-1.0); Calcium 7.1 mg/dL (8.5-10.1); Total Protein 4.6 g/dL (6.4-8.2)
[2022-02-02] MEDS: LEVOTHYROXINE SODIUM 50 MCG TAB PO SCH (06:42)
[2022-02-02] MEDS: metroNIDAZOLE 500 MG TAB PO SCH ×2 (07:02→17:28)
[2022-02-02] MEDS: NYSTATIN (MOUTH-THROAT) 500,000 UNITS/5 ML SUSP MT SCH ×3 (07:02→21:34)
[2022-02-02 08:30] VITALS: BP 123/68
[2022-02-02] MEDS: SODIUM CHLOR 0.9% PF (SALINE LOCK) 10ML VIAL/SYR IV SCH (10:00)
[2022-02-02] MEDS: FLUCONAZOLE 100 MG TAB PO SCH (12:27)
[2022-02-02] MEDS: FERROUS SULFATE 325mg EC TAB PO SCH ×2 (12:27→21:31)
[2022-02-02] MEDS: levoFLOXacin 500 MG TAB PO SCH (12:28)
[2022-02-02] MEDS: SACUBITRIL-VALSARTAN 24mg/26mg TAB PO SCH (12:28)
[2022-02-02] MEDS: METOPROLOL TARTRATE 50 MG TAB PO SCH (12:29)
[2022-02-02] MEDS: APIXABAN 5 MG TAB PO SCH (12:29)
[2022-02-02 12:30] VITALS: BP 115/68
[2022-02-02] MEDS: FUROSEMIDE 40 MG TAB PO SCH (12:30)
[2022-02-02] MEDS: PANTOPRAZOLE 40 MG TAB PO SCH (12:30)
[2022-02-02] MEDS: POTASSIUM EFFERVESENT TAB 25 MEQ PO SCH (12:31)
[2022-02-02] MEDS: HYDROmorphone HCL 2 MG/ML VL/or syr IV PRN ×2 (12:45→17:38)
[2022-02-02] MEDS ORDERED: POTASSIUM EFFERVESENT TAB 25 MEQ PO ONE (13:00)
[2022-02-02 17:04] VITALS: BP 122/84
[2022-02-02 20:51] VITALS: BP 115/68
== END 2022-02-02 21:15 | DRG 853 ==
LOC: ER 08:15 → EDBD 08:15 → TELE 16:59 → TELE-WESTW 22:18 → ICU WEST 01-17 14:23 → TELE-EAST 01-22 18:14
PROVIDERS: ADMIT Internal Medicine; ATTEND Internal Medicine
PROC: B246ZZ4 Ultrasonography of Right and Left Heart, Transesophageal (ICD-10-PCS; 2022-01-07)
PROC: 02HV33Z Insertion of Infusion Device into Superior Vena Cava, Percutaneous Approach (ICD-10-PCS; 2022-01-08)
PROC: B548ZZA Ultrasonography of Superior Vena Cava, Guidance (ICD-10-PCS; 2022-01-08)
PROC: 0DJD8ZZ Inspection of Lower Intestinal Tract, Via Natural or Artificial Opening Endoscopic (ICD-10-PCS; 2022-01-12)
PROC: 0D1M0Z4 Bypass Descending Colon to Cutaneous, Open Approach (ICD-10-PCS; 2022-01-17)
PROC: 5A1945Z Respiratory Ventilation, 24-96 Consecutive Hours (ICD-10-PCS; 2022-01-17)
PROC: 0BH17EZ Insertion of Endotracheal Airway into Trachea, Via Natural or Artificial Opening (ICD-10-PCS; 2022-01-17)
PROC: 0DBP0ZX Excision of Rectum, Open Approach, Diagnostic (ICD-10-PCS; 2022-01-17)
PROC: 0DTN0ZZ Resection of Sigmoid Colon, Open Approach (ICD-10-PCS; principal; 2022-01-17 08:42)
PROC: 30233N1 Transfusion of Nonautologous Red Blood Cells into Peripheral Vein, Percutaneous Approach (ICD-10-PCS; 2022-01-21)
DX: A41.9 Sepsis, unspecified organism (principal); E43 Unspecified severe protein-calorie malnutrition; I50.23 Acute on chronic systolic (congestive) heart failure; J96.00 Acute respiratory failure, unspecified whether with hypoxia or hypercapnia; N17.0 Acute kidney failure with tubular necrosis; I47.1 Supraventricular tachycardia; K56.609 Unspecified intestinal obstruction, unspecified as to partial versus complete obstruction; I47.2 Ventricular tachycardia; K59.39 Other megacolon; I82.621 Acute embolism and thrombosis of deep veins of right upper extremity; E83.51 Hypocalcemia; R19.00 Intra-abdominal and pelvic swelling, mass and lump, unspecified site; I11.0 Hypertensive heart disease with heart failure; E83.52 Hypercalcemia; E03.9 Hypothyroidism, unspecified; Z53.29 Procedure and treatment not carried out because of patient's decision for other reasons; I48.91 Unspecified atrial fibrillation; L73.2 Hidradenitis suppurativa; Z20.822 Contact with and (suspected) exposure to COVID-19; E07.9 Disorder of thyroid, unspecified; E66.01 Morbid (severe) obesity due to excess calories; K58.9 Irritable bowel syndrome, unspecified; E87.6 Hypokalemia; D15.1 Benign neoplasm of heart; K76.0 Fatty (change of) liver, not elsewhere classified; Z68.25 Body mass index [BMI] 25.0-25.9, adult; Z88.5 Allergy status to narcotic agent; Z98.84 Bariatric surgery status; Z90.49 Acquired absence of other specified parts of digestive tract
CPT/HCPCS: 36415; 36569; 36600; 71045; 73723; 74018; 74177; 76775; 76856; 80048; 80053; 80162; 80202; 80307; 81001; 82140; 82378; 82570; 82607; 82805; 82962; 83036; 83540; 83550; 83605; 83690; 83735; 83880; 84100; 84132; 84156; 84207; 84300; 84425; 84439; 84443; 84478; 84484; 84702; 85007; 85014; 85018; 85025; 85027; 85379; 85610; 85730; 86304; 86850; 86900; 86901; 86920; 87040; 87070; 87077; 87081; 87086; 87088; 87205; 87426; 93005; 93306; 93312; 93970; 93971; 94002; 94003; 96361; 96365; 96375; 96376; 97110; 97116; 97163; 97530; 99152; 99291; A4565; C9113; G0378; J0153; J0610; J0696; J1815; J1885; J2001; J2250; J2405; J2543; J2704; J3480; J3490; J7060; J7131; P9047